=== PATIENT | female | born 1970 | race Caucasian/White ===

== ENCOUNTER 2017-05-23 12:12 | Emergency (ER) | payer OTHER ==
[~2017-05-23] VITALS: Ht 170.2 cm; Wt 67.1 kg
[~2017-05-23 12:12] MED LIST: ACETAMINOPHEN500 MG PO; AMOCLA500 PO; Augmentin 875-1 EACH PO; CLIN300 PO; Cleocin HCl150 MG PO; DOXY100 PO; FLUC150A PO; Flomax0.4 MG PO; HYDACE5; HYDACE5 PO; HYDR1TAB94 PO; IBUP800 PO; META800 PO; METR250; METR500 PO; MULVITMINE; Miralax17 GM PO; NAPR500 PO; NYST100TC TOP; Norco 5-325 Ta1 EACH PO; OXYACE10; OXYACE5T PO; OXYB5 PO; PERCOCET PO; PRAZ1 PO; Percocet 5-3251 EACH PO; RXHYD5325 PO; RXOXYACE PO; Ultram50 MG PO; Zofran Odt4 MG PO; Zofran Odt4 MG SL; Zofran Odt8 MG SL
== END 2017-05-23 13:33 | disposition home or self-care (01) ==
LOC: ER 12:12
DX: M25.511 Pain in right shoulder (principal); Z88.2 Allergy status to sulfonamides; Z88.1 Allergy status to other antibiotic agents; Z88.5 Allergy status to narcotic agent; F43.10 Post-traumatic stress disorder, unspecified; Z87.891 Personal history of nicotine dependence
CPT/HCPCS: 73030; 99283

== ENCOUNTER 2017-05-28 14:05 | Emergency (ER) | payer OTHER ==
[~2017-05-28] VITALS: Ht 170.2 cm; Wt 67.1 kg
[2017-05-28 14:48] LABS: BASOPHILS ABSOLUTE AUTO 0.06 K/mm3 (0.00-0.23); BASOPHILS PERCENT AUTO 1 % (0-2); EOSINOPHILS ABSOLUTE AUTO 0.04 K/mm3 (0.00-0.68); EOSINOPHILS PERCENT AUTO 1 % (0-6); Hematocrit 37.8 % (33.0-51.0); Hemoglobin 12.4 g/dL (11.5-16.0); IMMATURE GRAN ABSOLUTE AUTO 0.04 K/mm3 (0.00-0.10); IMMATURE GRAN PERCENT AUTO 1 % (0-1); LYMPHOCYTES ABSOLUTE AUTO 1.93 K/mm3 (0.84-5.20); LYMPHOCYTES PERCENT AUTO 25 % (21-46); MONOCYTES ABSOLUTE AUTO 0.53 K/mm3 (0.16-1.47); MONOCYTES PERCENT AUTO 7 % (4-13); Mean Corpuscular HGB 29.7 pg (26.0-34.0); Mean Corpuscular HGB Conc 32.8 g/dL (31.5-36.5); Mean Corpuscular Volume 90 fL (80-100); Mean Platelet Volume 10.2 fL (9.1-12.4); NEUTROPHILS ABSOLUTE AUTO 5.19 K/mm3 (1.96-9.15); NEUTROPHILS PERCENT AUTO 67 % (41-73); Platelet Count 418 K/mm3 (150-400); RDW Coefficient Variation 15.5 % (11.7-14.2); RDW Standard Deviation 51.4 fL (35.1-46.3); Red Blood Cell Count 4.18 M/mm3 (3.80-5.20); White Blood Cell Count 7.79 K/mm3 (4.00-11.30)
[2017-05-28 15:10] LABS: Alanine Aminotransfer (ALT/SGP 16 U/L (12-78); Albumin/Globulin Ratio 1.1 (0.8-1.8); Alk Phos 55 U/L (50-136); Anion Gap 7 mmol/L (6-16); Aspartate Aminotrans (AST/SGOT 10 U/L (12-37); Bilirubin, Total 0.2 mg/dL (0.1-1.0); Blood Urea Nitrogen 6 mg/dL (8-24); Bun/Creatinine Ratio 10.7 (12.0-20.0); CO2, Blood 27 mmol/L (21-32); Chloride, Blood 108 mmol/L (98-108); Creatinine, Blood 0.56 mg/dL (0.40-1.00); Globulin, Blood 3.7 g/dL (2.2-4.0); Glomerular Filtration Rate >60 (60-); Glucose, Blood 111 mg/dL (70-99); Potassium, Blood 3.7 mmol/L (3.5-5.5); Sodium, Blood 142 mmol/L (136-145); Total Protein, Blood 7.7 g/dL (6.4-8.2)
[2017-05-28 17:10] LABS: Source, Urine Voided
[2017-05-28 17:19] LABS: Appearance, Urine Clear (Clear); Bilirubin, Urine Neg (Neg); Blood, Urine Neg (Neg); Color, Urine Yellow (P-Yellow); Glucose Qualitative, Urine Neg (Neg); Ketones, Urine 2+ (Neg); Leukocyte Esterase, Urine Neg (Neg); Nitrite, Urine Neg (Neg); Protein, Urine Neg (Neg); Specific Gravity, Urine 1.015 (1.003-1.022); Urobilinogen, Urine NORM (Normal)
[2017-05-28 17:44] LABS: Magnesium, Blood 2.1 mg/dL (1.6-2.4)
== END 2017-05-28 22:08 | disposition home or self-care (01) ==
LOC: ER 14:05
PROVIDERS: Emergency Medicine
DX: N83.201 Unspecified ovarian cyst, right side (principal); R42 Dizziness and giddiness; R53.83 Other fatigue; D64.9 Anemia, unspecified; N20.0 Calculus of kidney; Z88.2 Allergy status to sulfonamides; Z88.1 Allergy status to other antibiotic agents; Z88.5 Allergy status to narcotic agent; Z88.8 Allergy status to other drugs, medicaments and biological substances; Z87.891 Personal history of nicotine dependence
CPT/HCPCS: 36415; 74176; 76830; 76856; 80053; 81003; 81025; 83540; 83690; 83735; 84443; 85025; 93005; 93010; J1885; J3010

== ENCOUNTER → 2017-06-06 | Outpatient (CLI) | payer OTHER ==
[2017-06-07 08:14] LABS: Candida species (DNA Probe) Positive (NEGATIVE); G. vaginalis (DNA Probe) Positive (NEGATIVE); T. vaginalis (DNA Probe) Negative (NEGATIVE)
== END ==
LOC: LAB 18:17 → LAB SHORT 18:17
PROVIDERS: Nurse Practitioner Family
DX: N89.8 Other specified noninflammatory disorders of vagina (principal)
CPT/HCPCS: 87480; 87510; 87660

== ENCOUNTER 2017-06-14 16:06 | Emergency (ER) | payer OTHER ==
[~2017-06-14] VITALS: Ht 162.6 cm; Wt 65.8 kg
[2017-06-15] MEDS ORDERED: OXYC1TAB11 (17:41)
== END 2017-06-14 17:41 | disposition home or self-care (01) ==
LOC: ER 16:06
DX: R00.2 Palpitations (principal)
CPT/HCPCS: 93005; 93010; 99283

== ENCOUNTER 2017-06-15 17:22 | Emergency (ER) | payer OTHER ==
[~2017-06-15] VITALS: Ht 170.2 cm; Wt 65.8 kg
[2017-06-15] MEDS ORDERED: OXYC1TAB11 (17:41)
[2017-06-15 18:06] LABS: BASOPHILS ABSOLUTE AUTO 0.02 K/mm3 (0.00-0.23); BASOPHILS PERCENT AUTO 0 % (0-2); EOSINOPHILS PERCENT AUTO 0 % (0-6); Hematocrit 38.6 % (33.0-51.0); Hemoglobin 12.9 g/dL (11.5-16.0); IMMATURE GRAN ABSOLUTE AUTO 0.08 K/mm3 (0.00-0.10); IMMATURE GRAN PERCENT AUTO 1 % (0-1); LYMPHOCYTES ABSOLUTE AUTO 1.37 K/mm3 (0.84-5.20); LYMPHOCYTES PERCENT AUTO 9 % (21-46); MONOCYTES ABSOLUTE AUTO 0.86 K/mm3 (0.16-1.47); MONOCYTES PERCENT AUTO 6 % (4-13); Mean Corpuscular HGB 29.6 pg (26.0-34.0); Mean Corpuscular HGB Conc 33.4 g/dL (31.5-36.5); Mean Corpuscular Volume 89 fL (80-100); Mean Platelet Volume 10.2 fL (9.1-12.4); NEUTROPHILS ABSOLUTE AUTO 12.35 K/mm3 (1.96-9.15); NEUTROPHILS PERCENT AUTO 84 % (41-73); Platelet Count 381 K/mm3 (150-400); RDW Coefficient Variation 14.6 % (11.7-14.2); RDW Standard Deviation 47.8 fL (35.1-46.3); Red Blood Cell Count 4.36 M/mm3 (3.80-5.20); White Blood Cell Count 14.68 K/mm3 (4.00-11.30)
[2017-06-15 18:27] LABS: Alanine Aminotransfer (ALT/SGP 14 U/L (12-78); Albumin, Blood 3.9 g/dL (3.4-5.0); Albumin/Globulin Ratio 1.1 (0.8-1.8); Alk Phos 49 U/L (50-136); Anion Gap 10 mmol/L (6-16); Aspartate Aminotrans (AST/SGOT 11 U/L (12-37); Bilirubin, Total 0.3 mg/dL (0.1-1.0); Blood Urea Nitrogen 5 mg/dL (8-24); Bun/Creatinine Ratio 9.7 (12.0-20.0); CO2, Blood 23 mmol/L (21-32); Chloride, Blood 107 mmol/L (98-108); Creatinine, Blood 0.52 mg/dL (0.40-1.00); Globulin, Blood 3.6 g/dL (2.2-4.0); Glomerular Filtration Rate >60 (60-); Glucose, Blood 124 mg/dL (70-99); Potassium, Blood 3.2 mmol/L (3.5-5.5); Sodium, Blood 140 mmol/L (136-145); Total Protein, Blood 7.5 g/dL (6.4-8.2); Troponin I <0.015 ng/mL (0.000-0.040)
== END 2017-06-15 19:16 | disposition home or self-care (01) ==
LOC: ER 17:22
PROVIDERS: Emergency Medicine
DX: R00.2 Palpitations (principal)
CPT/HCPCS: 36415; 80053; 83605; 84484; 85025; 85651; 87040; 93005; 93010; 99283

== ENCOUNTER 2017-08-16 13:58 | Emergency (ER) | payer OTHER ==
[~2017-08-16] VITALS: Ht 167.6 cm; Wt 65.8 kg
[~2017-08-16 13:58] MED LIST changes: +OXYC1TAB11
[2017-08-16 15:34] LABS: Source, Urine Clean Catch
[2017-08-16 15:35] LABS: Calcium, Ionized (POC) 1.17 mmol/L (1.10-1.46); Chloride (POC) 102 mmol/L (98-108); Creatinine (POC) 0.5 mg/dL (0.6-1.0); Glucose (ISTAT POC) 86 mg/dL (70-99); Hemoglobin (POC) 13.9 g/dL (12.0-16.0); Potassium (POC) 3.6 mmol/L (3.5-5.5); Sodium (POC) 140 mmol/L (135-148); Total CO2 (POC) 27 mmol/L (21-32)
[2017-08-16 15:42] LABS: Bilirubin, Urine Neg (Neg); Blood, Urine 3+ (Neg); Glucose Qualitative, Urine Neg (Neg); Ketones, Urine Neg (Neg); Leukocyte Esterase, Urine 3+ (Neg); Nitrite, Urine Neg (Neg); Protein, Urine Neg (Neg); Urobilinogen, Urine NORM (Normal)
[2017-08-16 16:10] LABS: Appearance, Urine Clear (Clear); Color, Urine Yellow (P-Yellow)
[2017-08-16 16:11] LABS: Bacteria Few /hpf; Squamous Epithelial Cells Few /hpf (Few)
[2017-08-16] MEDS ORDERED: CEPH500 PO (16:21)
[2017-08-16] MEDS ORDERED: Pyridium100 MG PO (16:21)
[2017-08-16] MEDS ORDERED: FLUC150A PO (16:21)
[2017-08-16] MEDS ORDERED: Percocet 5-3251 EACH PO (16:23)
[2017-08-16] MEDS ORDERED: Flagyl500 MG PO (16:23)
== END 2017-08-16 16:24 | disposition home or self-care (01) ==
LOC: ER 13:58
PROVIDERS: Physician Assistant
DX: N39.0 Urinary tract infection, site not specified (principal); N83.01 Follicular cyst of right ovary; Z88.6 Allergy status to analgesic agent; Z88.2 Allergy status to sulfonamides; Z88.1 Allergy status to other antibiotic agents; Z88.8 Allergy status to other drugs, medicaments and biological substances; Z88.5 Allergy status to narcotic agent; Z87.891 Personal history of nicotine dependence
CPT/HCPCS: 76856; 80047; 81001; 85014; 87077; 87086; 87186; 99284-25

== ENCOUNTER 2017-10-02 16:07 | Emergency (ER) | payer OTHER ==
[~2017-10-02] VITALS: Ht 167.6 cm; Wt 65.8 kg
[~2017-10-02 16:07] MED LIST changes: +CEPH500 PO; +Flagyl500 MG PO; +Pyridium100 MG PO
[2017-10-02] MEDS ORDERED: ALBU90OI INH (16:39)
== END 2017-10-02 16:47 | disposition home or self-care (01) ==
LOC: ER 16:07
DX: R06.02 Shortness of breath (principal); Z88.6 Allergy status to analgesic agent; Z88.2 Allergy status to sulfonamides; Z88.1 Allergy status to other antibiotic agents; Z88.5 Allergy status to narcotic agent; Z88.8 Allergy status to other drugs, medicaments and biological substances; Z87.891 Personal history of nicotine dependence
CPT/HCPCS: 99283

== ENCOUNTER 2017-10-14 15:18 | Emergency (ER) | payer OTHER ==
[~2017-10-14] VITALS: Ht 167.6 cm; Wt 65.8 kg
[~2017-10-14 15:18] MED LIST changes: +ALBU90OI INH
[2017-10-14] MEDS ORDERED: Amoxicillin500 MG PO (16:30)
== END 2017-10-14 16:38 | disposition home or self-care (01) ==
LOC: ER 15:18
DX: J32.8 Other chronic sinusitis (principal); Q89.01 Asplenia (congenital); Z88.2 Allergy status to sulfonamides; Z88.8 Allergy status to other drugs, medicaments and biological substances; Z88.1 Allergy status to other antibiotic agents; Z88.5 Allergy status to narcotic agent; F43.10 Post-traumatic stress disorder, unspecified; Z87.891 Personal history of nicotine dependence
CPT/HCPCS: 71046; 99283-25

== ENCOUNTER 2017-10-16 10:48 | Emergency (ER) | payer OTHER ==
[~2017-10-16] VITALS: Ht 167.6 cm; Wt 65.8 kg
[~2017-10-16 10:48] MED LIST changes: +Amoxicillin500 MG PO
[2017-10-16 12:29] LABS: Source, Urine Clean Catch
[2017-10-16 12:35] LABS: BASOPHILS ABSOLUTE AUTO 0.06 K/mm3 (0.00-0.23); BASOPHILS PERCENT AUTO 1 % (0-2); EOSINOPHILS ABSOLUTE AUTO 0.02 K/mm3 (0.00-0.68); EOSINOPHILS PERCENT AUTO 0 % (0-6); Hematocrit 37.2 % (33.0-51.0); Hemoglobin 12.1 g/dL (11.5-16.0); IMMATURE GRAN ABSOLUTE AUTO 0.07 K/mm3 (0.00-0.10); IMMATURE GRAN PERCENT AUTO 1 % (0-1); LYMPHOCYTES PERCENT AUTO 30 % (21-46); MONOCYTES ABSOLUTE AUTO 0.85 K/mm3 (0.16-1.47); MONOCYTES PERCENT AUTO 9 % (4-13); Mean Corpuscular HGB 29.4 pg (26.0-34.0); Mean Corpuscular HGB Conc 32.5 g/dL (31.5-36.5); Mean Corpuscular Volume 91 fL (80-100); Mean Platelet Volume 10.5 fL (9.1-12.4); NEUTROPHILS ABSOLUTE AUTO 5.44 K/mm3 (1.96-9.15); NEUTROPHILS PERCENT AUTO 60 % (41-73); Platelet Count 357 K/mm3 (150-400); RDW Coefficient Variation 13.9 % (11.7-14.2); RDW Standard Deviation 46.4 fL (35.1-46.3); Red Blood Cell Count 4.11 M/mm3 (3.80-5.20); White Blood Cell Count 9.14 K/mm3 (4.00-11.30)
[2017-10-16 12:37] LABS: Bilirubin, Urine Neg (Neg); Blood, Urine 2+ (Neg); Glucose Qualitative, Urine Neg (Neg); Ketones, Urine 2+ (Neg); Leukocyte Esterase, Urine Neg (Neg); Nitrite, Urine Neg (Neg); Protein, Urine Neg (Neg); Specific Gravity, Urine 1.025 (1.003-1.022); Urobilinogen, Urine NORM (Normal)
[2017-10-16 12:53] LABS: Alanine Aminotransfer (ALT/SGP 14 U/L (12-78); Albumin, Blood 3.5 g/dL (3.4-5.0); Albumin/Globulin Ratio 0.9 (0.8-1.8); Alk Phos 49 U/L (50-136); Anion Gap 6 mmol/L (6-16); Aspartate Aminotrans (AST/SGOT 15 U/L (12-37); Bilirubin, Total 0.2 mg/dL (0.1-1.0); Blood Urea Nitrogen 5 mg/dL (8-24); Bun/Creatinine Ratio 9.1 (12.0-20.0); CO2, Blood 25 mmol/L (21-32); Calcium, Blood 8.6 mg/dL (8.5-10.1); Chloride, Blood 109 mmol/L (98-108); Creatinine, Blood 0.55 mg/dL (0.40-1.00); Globulin, Blood 3.8 g/dL (2.2-4.0); Glomerular Filtration Rate >60 (60-); Glucose, Blood 80 mg/dL (70-99); Potassium, Blood 3.5 mmol/L (3.5-5.5); Sodium, Blood 140 mmol/L (136-145); Total Protein, Blood 7.3 g/dL (6.4-8.2)
[2017-10-16 13:16] LABS: Appearance, Urine Hazy (Clear); Bacteria Rare /hpf; Color, Urine Yellow (P-Yellow); Red Blood Cells, Urine 0-2 /hpf (0-2); Squamous Epithelial Cells Many /hpf (Few); White Blood Cells, Urine 0-2 /hpf (0-5)
[2017-10-16 13:17] LABS: Mucus Mod (0-Heavy)
== END 2017-10-16 14:53 | disposition home or self-care (01) ==
LOC: ER 10:48
PROVIDERS: Emergency Medicine; Physician Assistant
DX: J32.9 Chronic sinusitis, unspecified (principal); R10.31 Right lower quadrant pain; Z88.6 Allergy status to analgesic agent; Z88.2 Allergy status to sulfonamides; Z88.1 Allergy status to other antibiotic agents; Z88.5 Allergy status to narcotic agent; Z88.8 Allergy status to other drugs, medicaments and biological substances; Z87.891 Personal history of nicotine dependence
CPT/HCPCS: 36415; 76856; 76857; 80053; 81001; 83605; 85025; 96361; 96374; 99284-25; J2405; J7120

== ENCOUNTER 2017-10-16 19:19 | Emergency (ER) | payer OTHER ==
[~2017-10-16] VITALS: Ht 167.6 cm; Wt 65.8 kg
== END 2017-10-16 23:49 | disposition home or self-care (01) ==
LOC: ER 19:19
DX: R10.9 Unspecified abdominal pain (principal); Z88.6 Allergy status to analgesic agent; Z88.2 Allergy status to sulfonamides; Z88.1 Allergy status to other antibiotic agents; Z88.8 Allergy status to other drugs, medicaments and biological substances; Z88.5 Allergy status to narcotic agent; Z87.891 Personal history of nicotine dependence
CPT/HCPCS: 99283

== ENCOUNTER 2017-10-24 12:52 | Emergency (ER) | payer OTHER ==
[~2017-10-24] VITALS: Ht 167.6 cm; Wt 65.8 kg
[2017-10-24] MEDS ORDERED: Percocet 5-3251 EACH PO (14:44)
== END 2017-10-24 15:10 | disposition home or self-care (01) ==
LOC: ER 12:52
DX: N83.209 Unspecified ovarian cyst, unspecified side (principal); N83.511 Torsion of right ovary and ovarian pedicle; Z88.6 Allergy status to analgesic agent; Z88.2 Allergy status to sulfonamides; Z88.1 Allergy status to other antibiotic agents; Z88.5 Allergy status to narcotic agent; Z88.8 Allergy status to other drugs, medicaments and biological substances; Z87.891 Personal history of nicotine dependence

== ENCOUNTER 2018-06-08 07:10 | Emergency (ER) | payer OTHER ==
[~2018-06-08] VITALS: Ht 167.6 cm; Wt 63.5 kg
[2018-06-08] MEDS ORDERED: Vibramycin100 MG PO (07:29)
[2018-06-08] MEDS ORDERED: FLUC150A PO (07:29)
[2018-06-08] MEDS ORDERED: Percocet 5-3251 EACH PO (07:29)
[2018-06-08] MEDS ORDERED: METR500 PO (07:30)
[2018-06-09] MEDS ORDERED: ACET325 PO (01:32)
== END 2018-06-08 07:50 | disposition home or self-care (01) ==
LOC: ER 07:10
DX: K04.7 Periapical abscess without sinus (principal); F43.10 Post-traumatic stress disorder, unspecified; Z88.1 Allergy status to other antibiotic agents; Z88.2 Allergy status to sulfonamides; Z88.5 Allergy status to narcotic agent; Z88.6 Allergy status to analgesic agent; Z88.8 Allergy status to other drugs, medicaments and biological substances; Z87.891 Personal history of nicotine dependence

== ENCOUNTER 2019-03-24 01:57 | Emergency (ER) | payer OTHER ==
[~2019-03-24] VITALS: Ht 167.6 cm; Wt 64.4 kg
== END 2019-03-24 03:00 | disposition home or self-care (01) ==
LOC: ER 01:57
DX: J02.9 Acute pharyngitis, unspecified (principal); Z88.8 Allergy status to other drugs, medicaments and biological substances; Z88.0 Allergy status to penicillin; Z88.2 Allergy status to sulfonamides; Z88.1 Allergy status to other antibiotic agents; Z88.5 Allergy status to narcotic agent
CPT/HCPCS: 87081; 87147; 87430; 99283; A9270

== ENCOUNTER → 2019-03-24 | Outpatient (CLI) | payer OTHER ==
[~2019-03-24] MED LIST changes: +ACET325 PO; +Vibramycin100 MG PO
== END ==
LOC: LAB 08:20 → LAB SHORT 08:20
DX: J02.9 Acute pharyngitis, unspecified (principal); R59.9 Enlarged lymph nodes, unspecified
CPT/HCPCS: 87081; 87147

== ENCOUNTER 2020-12-17 17:06 | Inpatient (IN) | payer OTHER ==
[~2020-12-17] VITALS: Ht 167.6 cm; Wt 71.5 kg
[2020-12-17 18:00] LABS: BASOPHILS ABSOLUTE AUTO 0.08 K/mm3 (0.00-0.23); BASOPHILS PERCENT AUTO 1 % (0-2); EOSINOPHILS ABSOLUTE AUTO 0.04 K/mm3 (0.00-0.68); EOSINOPHILS PERCENT AUTO 0 % (0-6); Hematocrit 28.7 % (33.0-51.0); Hemoglobin 8.6 g/dL (11.5-16.0); IMMATURE GRAN ABSOLUTE AUTO 0.07 K/mm3 (0.00-0.10); IMMATURE GRAN PERCENT AUTO 1 % (0-1); LYMPHOCYTES ABSOLUTE AUTO 2.96 K/mm3 (0.84-5.20); LYMPHOCYTES PERCENT AUTO 21 % (21-46); MONOCYTES ABSOLUTE AUTO 1.24 K/mm3 (0.16-1.47); MONOCYTES PERCENT AUTO 9 % (4-13); Mean Corpuscular HGB 20.7 pg (26.0-34.0); Mean Corpuscular Volume 69 fL (80-100); Mean Platelet Volume 10.7 fL (9.1-12.4); NEUTROPHILS ABSOLUTE AUTO 9.43 K/mm3 (1.96-9.15); NEUTROPHILS PERCENT AUTO 68 % (41-73); Platelet Count 333 K/mm3 (150-400); RDW Coefficient Variation 20.4 % (11.7-14.2); RDW Standard Deviation 50.1 fL (35.1-46.3); Red Blood Cell Count 4.15 M/mm3 (3.80-5.20); White Blood Cell Count 13.82 K/mm3 (4.00-11.30)
[2020-12-17 18:20] LABS: Alanine Aminotransfer (ALT/SGP 16 U/L (12-78); Albumin, Blood 3.4 g/dL (3.4-5.0); Albumin/Globulin Ratio 0.8 (0.8-1.8); Alk Phos 71 U/L (50-136); Anion Gap 4 mmol/L (6-16); Aspartate Aminotrans (AST/SGOT 13 U/L (12-37); Bilirubin, Total 0.3 mg/dL (0.1-1.0); Blood Urea Nitrogen 9 mg/dL (8-24); Bun/Creatinine Ratio 15.3 (12.0-20.0); CO2, Blood 26 mmol/L (21-32); Calcium, Blood 8.7 mg/dL (8.5-10.1); Chloride, Blood 105 mmol/L (98-108); Creatinine, Blood 0.59 mg/dL (0.40-1.00); Globulin, Blood 4.5 g/dL (2.2-4.0); Glomerular Filtration Rate >60 (60-); Glucose, Blood 103 mg/dL (70-99); Potassium, Blood 3.5 mmol/L (3.5-5.5); Sodium, Blood 135 mmol/L (136-145); Total Protein, Blood 7.9 g/dL (6.4-8.2); Troponin I <0.015 ng/mL (0.000-0.040)
[2020-12-17 22:21] LABS: International Normalized Ratio 1.09; Prothrombin Time Results 11.4 Sec (9.7-11.5)
[2020-12-17 22:28] LABS: Anti-Xa UFH, PHA Monitoring <0.10 IU/mL
--- NOTE | 2020-12-18 01:10 | NUR ---
ASSUMPTION OF CARE NOTE PATIENT ARRIVED TO PCU APPROX. 2325 VIA HOSPITAL BED. THIS NURSE RECIEVED REPORT FROM MAC RN DOWN IN ED PRIOR TO ARRIVAL. PT WAS ABLE TO TRANSFER TO PCU BED WITHOUT ASSISTANCE. PT WAS ORIENTED TO ROOM AND BELONGINGS WERE PUT IN CUBBORD IN ROOM. PT IS ALERT AND ORIENTED X 4, ON ROOM AIR SP02 IS 100%. PT REPORTED CHEST PAIN 7 TO 8/10. THIS NURSE SPOKE WITH DOCTOR PREETIE AND ORDERS PUT IN FOR PAIN MANAGEMENT. PT WAS MEDICATED PER EMAR AND NOW REPORTS PAIN 2/10. HEPARIN DRIP INFUSING PER EMAR ORDERS IN LEFT AC IV. CALL LIGHT IS WITHIN REACH AND PATIENT IS NOW EATING A SNACK. WILL CONTINUE TO MONITOR.
[2020-12-18 04:28] LABS: BASOPHILS ABSOLUTE AUTO 0.09 K/mm3 (0.00-0.23); BASOPHILS PERCENT AUTO 1 % (0-2); EOSINOPHILS PERCENT AUTO 2 % (0-6); Hemoglobin 7.8 g/dL (11.5-16.0); IMMATURE GRAN ABSOLUTE AUTO 0.07 K/mm3 (0.00-0.10); IMMATURE GRAN PERCENT AUTO 1 % (0-1); LYMPHOCYTES ABSOLUTE AUTO 2.39 K/mm3 (0.84-5.20); LYMPHOCYTES PERCENT AUTO 23 % (21-46); MONOCYTES ABSOLUTE AUTO 1.33 K/mm3 (0.16-1.47); MONOCYTES PERCENT AUTO 13 % (4-13); Mean Corpuscular HGB 20.5 pg (26.0-34.0); Mean Corpuscular HGB Conc 28.9 g/dL (31.5-36.5); Mean Corpuscular Volume 71 fL (80-100); Mean Platelet Volume 11.5 fL (9.1-12.4); NEUTROPHILS ABSOLUTE AUTO 6.53 K/mm3 (1.96-9.15); NEUTROPHILS PERCENT AUTO 62 % (41-73); Platelet Count 301 K/mm3 (150-400); RDW Coefficient Variation 20.9 % (11.7-14.2); RDW Standard Deviation 52.1 fL (35.1-46.3); Red Blood Cell Count 3.81 M/mm3 (3.80-5.20); White Blood Cell Count 10.61 K/mm3 (4.00-11.30)
[2020-12-18 04:45] LABS: Anion Gap 5 mmol/L (6-16); Blood Urea Nitrogen 8 mg/dL (8-24); Bun/Creatinine Ratio 15.2 (12.0-20.0); CO2, Blood 25 mmol/L (21-32); Calcium, Blood 8.4 mg/dL (8.5-10.1); Chloride, Blood 107 mmol/L (98-108); Creatinine, Blood 0.53 mg/dL (0.40-1.00); Glomerular Filtration Rate >60 (60-); Glucose, Blood 95 mg/dL (70-99); Potassium, Blood 3.7 mmol/L (3.5-5.5); Sodium, Blood 137 mmol/L (136-145)
[2020-12-18 04:56] LABS: Anti-Xa UFH, PHA Monitoring 0.62 IU/mL; International Normalized Ratio 1.11; Prothrombin Time Results 11.6 Sec (9.7-11.5)
--- NOTE | 2020-12-18 04:58 | NUR ---
SHIFT SUMMARY PT IS ALERT AND ORIENTED X 4. SPO2 97-100% VIA RA. VITAL SIGNS STABLE. PT HAS REPORTED CHEST PAIN ANYWHERE FROM 6 TO 9/10 AND HAS BEEN MEDICATED PER EMAR. PT REPORTS PAIN IS PRIMARILY IN RIGHT CHEST W/ ONSET UPON INSPIRATION. PT IS SBA TO BEDSIDE COMMODE TO MANAGE LINES. LEFT IV IS INFUSING HEPARIN AT 18 UNITS/KG/HR PER EMAR ORDERS. NO OTHER ACUTE CHNAGES NOTED. CALL LIGHT IS IN REACH.
--- NOTE | 2020-12-18 11:16 | NUR ---
Echocardiogram completed.
--- NOTE | 2020-12-18 17:39 | NUR ---
PT SUMMARY: PT STILL HAS OSME CHEST PAINS DUE TO PE'S MOSTLY ACCOMPANIED WITH DEEP BREATHS, PT STARTED ON OXYCODONE 5MG PT IT WAS MORE EFFECTIVE THAN FENTANYL. HEPARIN GTT RUNNING AT 17U/KG/HR. VITALS HRR SR/ST 90-110'S, BP SYSTOLIC 110'S, SATS ABOVE 95% ON RA, PT HAS MILD FEVER 100.2F TYLENOL GIVEN AND WENT DOWN TO 99.2, DR ALMONTE AWARE FEVER DUE TO PERIDONTAL ABSCESS PT STARTED ON METRONIDAZOLE AND DIFLUCAN PER DENTIST ORDERS. DR RACHEL CONSULTED NO IR ON SHCED FOR TODAY WILL FF-UP IN AM. PT ALERT AND ORIENTED X4 AT BASELINE, CALLS APPROPRIATELY, GETS UP TO USE THE BEDSIDE COMMODE PT STATED SHE GETS MILD SOB SATS REMAINED ABOVE 95% ON RA. NO OTHER ISSUES REPORTED WILL REPORT TO ONCOMING SHIFT
--- NOTE | 2020-12-19 05:13 | NUR ---
PATIENT IS ALERT AND ORIENTATED, FLAT AFFECT, CALL LIGHT WITHIN REACH, CALLS APPROPRIATELY, USES THE BEDSIDE COMMODE. PATIENT WAS UP ALL NIGHT NO SLEEP OVER 30 MINUTES, CALLING EVERY HOUR REQUESTING PAIN MEDICATION. AROUND 0230 PATIENT C/O OF NAUSEA RECEIVED NEW ORDERS FOR ZOFRAN AND ATARAX FOR ANXIETY. PATIENT VITALS STABLE WITH 02 97-99 SATURATIONS ON RA, EXPRESSED DIFFICULTY TO BREATHE AND REQUESTED SHE HAVE NASAL CANNULA WITH 2 LITERS " JUST IN CASE I NEED IT" UPON ENTERING ROOM PATIENT IS RESTING COMFORTABLY IN BED NO PROTECTED MOVEMENTS, LOOKING AT HER PHONE NO GRIMACING NOTED FLACC SCORE O, PATIENT REPORTS 7-11/20 PAIN IN HER CHEST THAT RADIATES TO HER BACK, WITH DIFFICULTY BREATHING, NO ACCERSSORY MUSCLE USES, RR 12-16 AND O2 SATURATIONS MAINTAIN > 92 ON RA. PATIENT ALSO REQUESTED THAT SHE HAVE THRILL PERFORMER SEE HER TODAY, SHE IS IN A VOLITILE SITUATION WITH WHERE SHE LIVES, " THE NEIGHBOR SMOKES CIGGARETTES SO BAD, I HAD TO GIVE MY NOTICE, MY LANDLORD IS NOT GOING TO MIND I BREAK MY LEASE, NOTHING HE CAN DO THE TENANT IS GRANDFATHER CLAUSED IN AND CAN SMOKE. THE YESTERDAY STATED THAT HIS SMOKING COULD OF CONTRIBUTED TO MY BLOOD CLOTS." I WILL FORWARD REQUEST TO DAYSHIFT JADE.
[2020-12-19 06:46] LABS: BASOPHILS ABSOLUTE AUTO 0.09 K/mm3 (0.00-0.23); BASOPHILS PERCENT AUTO 1 % (0-2); EOSINOPHILS ABSOLUTE AUTO 0.08 K/mm3 (0.00-0.68); EOSINOPHILS PERCENT AUTO 1 % (0-6); Hematocrit 25.4 % (33.0-51.0); Hemoglobin 7.3 g/dL (11.5-16.0); IMMATURE GRAN ABSOLUTE AUTO 0.09 K/mm3 (0.00-0.10); IMMATURE GRAN PERCENT AUTO 1 % (0-1); LYMPHOCYTES PERCENT AUTO 9 % (21-46); MONOCYTES ABSOLUTE AUTO 1.46 K/mm3 (0.16-1.47); MONOCYTES PERCENT AUTO 9 % (4-13); Mean Corpuscular HGB 20.3 pg (26.0-34.0); Mean Corpuscular HGB Conc 28.7 g/dL (31.5-36.5); Mean Corpuscular Volume 71 fL (80-100); NEUTROPHILS ABSOLUTE AUTO 12.59 K/mm3 (1.96-9.15); NEUTROPHILS PERCENT AUTO 80 % (41-73); Platelet Count 273 K/mm3 (150-400); RDW Coefficient Variation 20.9 % (11.7-14.2); RDW Standard Deviation 52.2 fL (35.1-46.3); Red Blood Cell Count 3.59 M/mm3 (3.80-5.20); White Blood Cell Count 15.71 K/mm3 (4.00-11.30)
[2020-12-19 06:47] LABS: Mean Platelet Volume 11.6 fL (9.1-12.4)
[2020-12-19 06:53] LABS: Anion Gap 6 mmol/L (6-16); Blood Urea Nitrogen 6 mg/dL (8-24); Bun/Creatinine Ratio 13.2 (12.0-20.0); CO2, Blood 23 mmol/L (21-32); Calcium, Blood 8.1 mg/dL (8.5-10.1); Chloride, Blood 105 mmol/L (98-108); Creatinine, Blood 0.46 mg/dL (0.40-1.00); Glomerular Filtration Rate >60 (60-); Glucose, Blood 134 mg/dL (70-99); Potassium, Blood 3.7 mmol/L (3.5-5.5); Sodium, Blood 134 mmol/L (136-145)
--- NOTE | 2020-12-19 16:52 | NUR ---
PT SUMMARY: PT MOSTLY ANXIOUS TODAY CALLS OFTEN FOR PAIN MEDS, TYLENOL AND ATARAX. OXYCODONE INCREASED TO 10MG. HAD FEVER OF 100 TYLENOL GIVEN TEMP NOW DOWN TO 99. ABO GIVEN PER ORDERS FOR DENTAL ABSCESS. REMAINS ON HEPARIN GTT AT 14U/KG/HR. PT WAS USING THE BEDSIDE COMMODE FOR TOILETING C/O SOB AND CHEST PAIN WITH EXERTION. PT REQUESTED TO USE BED ODELL NEXT TIME. DR RACHEL ALSO WENT AND SAW PT TODAY PLAN TO TO DO THROMBECTOMY TOMORROW IF CHEST PAIN STILL WORSE. NO OTHER ISSUES REPORTED, PT REMAINS IN BED ALL SHIFT, ABLE TO MAKE NEEDS KNOWN, WILL MONITOR
[2020-12-20 00:56] LABS: BASOPHILS ABSOLUTE AUTO 0.07 K/mm3 (0.00-0.23); BASOPHILS PERCENT AUTO 0 % (0-2); EOSINOPHILS ABSOLUTE AUTO 0.02 K/mm3 (0.00-0.68); EOSINOPHILS PERCENT AUTO 0 % (0-6); Hematocrit 24.6 % (33.0-51.0); Hemoglobin 7.4 g/dL (11.5-16.0); IMMATURE GRAN ABSOLUTE AUTO 0.16 K/mm3 (0.00-0.10); IMMATURE GRAN PERCENT AUTO 1 % (0-1); LYMPHOCYTES ABSOLUTE AUTO 2.63 K/mm3 (0.84-5.20); LYMPHOCYTES PERCENT AUTO 13 % (21-46); MONOCYTES PERCENT AUTO 13 % (4-13); Mean Corpuscular HGB Conc 30.1 g/dL (31.5-36.5); Mean Corpuscular Volume 70 fL (80-100); Mean Platelet Volume 11.1 fL (9.1-12.4); NEUTROPHILS ABSOLUTE AUTO 15.33 K/mm3 (1.96-9.15); NEUTROPHILS PERCENT AUTO 73 % (41-73); Platelet Count 337 K/mm3 (150-400); RDW Coefficient Variation 21.2 % (11.7-14.2); Red Blood Cell Count 3.53 M/mm3 (3.80-5.20); White Blood Cell Count 20.91 K/mm3 (4.00-11.30)
[2020-12-20 01:13] LABS: Anion Gap 6 mmol/L (6-16); Blood Urea Nitrogen 6 mg/dL (8-24); Bun/Creatinine Ratio 11.6 (12.0-20.0); CO2, Blood 26 mmol/L (21-32); Calcium, Blood 8.4 mg/dL (8.5-10.1); Chloride, Blood 103 mmol/L (98-108); Creatinine, Blood 0.52 mg/dL (0.40-1.00); Glomerular Filtration Rate >60 (60-); Glucose, Blood 115 mg/dL (70-99); Potassium, Blood 3.6 mmol/L (3.5-5.5); Sodium, Blood 135 mmol/L (136-145)
--- NOTE | 2020-12-20 05:52 | NUR ---
PT ON RA O2 SAT 93%. SOME DYSPNEA WITH EXERTION. MAIN CONCERN THIS SHIFT IS PLEURITIC PAIN, DOMINENTLY ON THE RIGHT LUNG. LUNG SOUND DIMINISHED ACROSS ALL RIGHT LUNG PEGUERO AND CLEAR ON LEFT LUNGS. ADMINISTERING [employer]NALGES[employer] THROUGHOUT SHIFT WELL TYLENOL. HIGHEST TEMP THIS SHIFT 99 F
--- NOTE | 2020-12-20 17:08 | NUR ---
Shift note: Pt is A&O. VSS on RA. Pain in lungs/ pleuritic pain, prn fentyl, oxy and tylenol given. Anxious in am, prn hydroxazine given. Heparin gtt continued 14unit/kg/hr, anti Xa .32 this evening, no changes to rate. Pt has been eating more today and attempting to drink as much water as she can.
--- NOTE | 2020-12-20 17:35 | NUR ---
pt has had low grade fever throughout the day w/ tylenol q6. 99-100.3.
[2020-12-21 03:49] LABS: BASOPHILS ABSOLUTE AUTO 0.06 K/mm3 (0.00-0.23); BASOPHILS PERCENT AUTO 0 % (0-2); EOSINOPHILS ABSOLUTE AUTO 0.03 K/mm3 (0.00-0.68); EOSINOPHILS PERCENT AUTO 0 % (0-6); Hematocrit 24.2 % (33.0-51.0); Hemoglobin 7.1 g/dL (11.5-16.0); IMMATURE GRAN ABSOLUTE AUTO 0.19 K/mm3 (0.00-0.10); IMMATURE GRAN PERCENT AUTO 1 % (0-1); LYMPHOCYTES ABSOLUTE AUTO 2.67 K/mm3 (0.84-5.20); LYMPHOCYTES PERCENT AUTO 13 % (21-46); MONOCYTES PERCENT AUTO 14 % (4-13); Mean Corpuscular HGB 20.6 pg (26.0-34.0); Mean Corpuscular HGB Conc 29.3 g/dL (31.5-36.5); Mean Corpuscular Volume 70 fL (80-100); Mean Platelet Volume 11.6 fL (9.1-12.4); NEUTROPHILS ABSOLUTE AUTO 14.54 K/mm3 (1.96-9.15); NEUTROPHILS PERCENT AUTO 71 % (41-73); Platelet Count 337 K/mm3 (150-400); RDW Coefficient Variation 20.9 % (11.7-14.2); RDW Standard Deviation 52.1 fL (35.1-46.3); Red Blood Cell Count 3.44 M/mm3 (3.80-5.20); White Blood Cell Count 20.39 K/mm3 (4.00-11.30)
[2020-12-21 04:05] LABS: Anion Gap 5 mmol/L (6-16); Blood Urea Nitrogen 5 mg/dL (8-24); Bun/Creatinine Ratio 9.7 (12.0-20.0); CO2, Blood 27 mmol/L (21-32); Calcium, Blood 8.6 mg/dL (8.5-10.1); Chloride, Blood 102 mmol/L (98-108); Creatinine, Blood 0.52 mg/dL (0.40-1.00); Glomerular Filtration Rate >60 (60-); Glucose, Blood 106 mg/dL (70-99); Potassium, Blood 3.8 mmol/L (3.5-5.5); Sodium, Blood 134 mmol/L (136-145)
--- NOTE | 2020-12-21 06:21 | NUR ---
Pt reorting signifigant pain at start of shift. IV found to have infiltrated requiring new iv and bolus of heparin and increased heparin gtt. after heparin bolus patient reports feeling much better. pt reports having most ease transfering to bsc since admit. patient reported this improvement 2x. later this shift pt denies improvement and reports concern about pain medication not having been increased. pt is taking adequet po intake, but reports concern as to why IV fluids have not been started. This rn discussed adequet PO intake of fluids, but pt continues to have concerns about being dehydrated during the day and needing iv fluids at that time. pt has had 800-1600cc fluid over night and urine is now clear yellow. this was reiterated to patient, but patient continues to express concern about previous days hydration and poorly managed oain control. plan to reevaluate plan with day team.
[2020-12-21 10:26] LABS: Hemoglobin 7.6 g/dL (11.5-16.0)
--- NOTE | 2020-12-21 13:49 | NUR ---
Heparin gtt d/c when first dose of xaralto was given per pharmacy orders.
--- NOTE | 2020-12-21 15:54 | NUR ---
SHIFT NOTE: Pt is A&O, anxious at times. VSS on RA, pt has had a low grade fever again today even with prn tylenol. Pleuritic pain reported, prn fentynl, oxy and tylenol given with some effect. Pt reports pain has improved from yesterday. SOB at times. Heparin gtt d/c and xaralto started per orders. Pt up with supervision. PIV in right hand flushing well. Swelling lower left ext.
--- NOTE | 2020-12-21 16:44 | NUR ---
Pt was requesting more pain med, notified. Pt is already getting fentynl q4hr and oxycodone q4hrs, MD said they will not increase the oxycodone at this time, but ok'ed to give current oxy 10mg dose a little early. Pt notified of this. also notified that pt has had low grade fever the last few days even with q6hr tylenol.
[2020-12-22 05:01] LABS: BASOPHILS ABSOLUTE AUTO 0.06 K/mm3 (0.00-0.23); BASOPHILS PERCENT AUTO 0 % (0-2); EOSINOPHILS ABSOLUTE AUTO 0.22 K/mm3 (0.00-0.68); EOSINOPHILS PERCENT AUTO 2 % (0-6); Hematocrit 24.8 % (33.0-51.0); Hemoglobin 7.2 g/dL (11.5-16.0); IMMATURE GRAN ABSOLUTE AUTO 0.17 K/mm3 (0.00-0.10); IMMATURE GRAN PERCENT AUTO 1 % (0-1); LYMPHOCYTES ABSOLUTE AUTO 1.93 K/mm3 (0.84-5.20); LYMPHOCYTES PERCENT AUTO 13 % (21-46); MONOCYTES ABSOLUTE AUTO 2.13 K/mm3 (0.16-1.47); MONOCYTES PERCENT AUTO 14 % (4-13); Mean Corpuscular HGB 20.2 pg (26.0-34.0); Mean Corpuscular Volume 70 fL (80-100); Mean Platelet Volume 12.1 fL (9.1-12.4); NEUTROPHILS ABSOLUTE AUTO 10.34 K/mm3 (1.96-9.15); NEUTROPHILS PERCENT AUTO 70 % (41-73); NRBC ABSOLUTE 0.02 K/mm3 (0.00-0.02); NRBC Auto 0.1 /100 WBC (0.0-0.2); Platelet Count 413 K/mm3 (150-400); RDW Coefficient Variation 20.7 % (11.7-14.2); RDW Standard Deviation 50.7 fL (35.1-46.3); Red Blood Cell Count 3.56 M/mm3 (3.80-5.20); White Blood Cell Count 14.85 K/mm3 (4.00-11.30)
--- NOTE | 2020-12-22 07:15 | NUR ---
ASSUMPTION OF CARE PT HIT CALL LIGHT FOR PAIN MEDICATION. PT IS A&O X4. PT PLEASANT AND ASKS QUESTIONS. OCCASIONALLY ANXIOUS BUT SUBSIDES WITH CONTINUED CONVERSATION. PT EXPRESSES CONCERN ABOUT GOING HOME DUE TO STAIRS IN THE HOME. PROVIDER INFORMED AND PHYSICAL THERAPY CONSULTED. PT ON RA, LAYING IN BED. BEDSIDE COMMODE PLACED NEXT TO BED, PT INDEPENDENTLY GETS SELF OUT OF BED AND TO COMMODE. REQUESTS TO BE GIVEN PRIVACY AND CALLS WITH CALLIGHT WHEN DONE. PT INDEPENDENTLY GETS SELF BACK INTO BED AND REPOSITIONS HERSELF. VSS. SEE SHIFT ASSESSMENT.
--- NOTE | 2020-12-22 08:54 | NUR ---
PROVIDER IN TO SEE PT. PT. REPORTS SHE IS TOO WEAK TO GO HOME, PLANS FOR PT/OT EVAL FOR POSSIBLE DC TO SNF. CASE MANAGEMENT NOTIFIED OF PLANS, AND AWAITING PT EVAL. PT. ALSO REQUESTING ASSISTANCE WITH HOUSING, CASE MANAGEMENT NOTIFIED. ORDERS PLACED TO DC FENTANYL ADMIN, AND TRANSFER TO MEDICAL FLOOR.
--- NOTE | 2020-12-22 09:47 | NUR ---
PT SEEN BY PHYSICAL THERAPY, CARE MANAGEMENT, AND ATTENDING PHYSICIANS. PT CONTINUES TO EXPRESS CONCERN ABOUT DISCHARGING HOME. TEAM RESEARCHING POSSIBILITY OF PT GOING TO SNF.
[2020-12-22] MEDS ORDERED: Acetaminophen650 M1 PO (13:35)
[2020-12-22] MEDS ORDERED: METR500 PO (13:40)
[2020-12-22] MEDS ORDERED: ROXICODONE5 MG PO (13:42)
[2020-12-22] MEDS ORDERED: MIRALAX17 GM PO (13:43)
[2020-12-22] MEDS ORDERED: XARELTO15 MG PO (13:45)
[2020-12-22] MEDS ORDERED: XARELTO20 MG PO (13:46)
--- NOTE | 2020-12-22 17:10 | NUR ---
DISCHARGE SUMMARY PT DRESSES SELF WITHOUT DIFFICULTY, APPLIED MAKEUP. PT GIVEN WATER AND BELONGINGS GATHERED. IVS REMOVED AND VSS. PT DENIES ADDITIONAL QUESTIONS OR CONCERNS, WHEELED OUT TO [facility] BY DERRICK MAN. DISCHARGE INSTRUCTIONS IN HAND WITH RX. NO ACUTE DISTRESS NOTED UPON DISCHARGE, ENCOURAGED TO RETURN FOR WORSENING SYMPTOMS. HOME HEALTH AND A TO FOLLOW UP IN AM.
[2021-01-01 19:10] LABS: ACT. PRT C RESIST W/FV DEFIC. 2.6 ratio (.); APTT 24.4 sec (.); DRVVT SCREEN SECONDS 33.8 sec (.); FACTOR VIII ACTIVITY 193 % (.); HEXAGONAL PHOSPHOLIPID NEUTRAL 0 sec (.); HOMOCYSTEINE 6.6 umol/L (.); PRT C ACTIVITY (CHROMOGENIC) 71 % (.)
== END 2020-12-22 17:28 | disposition home health service (06) | DRG 176 ==
LOC: ER 17:06 → PCU 21:53 → ER 23:20 → PCU 23:35
PROVIDERS: Emergency Medicine; Family Medicine; Physician Assistant; ADMIT Family Medicine
DX: I26.99 Other pulmonary embolism without acute cor pulmonale (principal); E87.1 Hypo-osmolality and hyponatremia; I82.432 Acute embolism and thrombosis of left popliteal vein; I82.442 Acute embolism and thrombosis of left tibial vein; D64.9 Anemia, unspecified; Z86.718 Personal history of other venous thrombosis and embolism; Z88.1 Allergy status to other antibiotic agents; D72.829 Elevated white blood cell count, unspecified; Z88.2 Allergy status to sulfonamides; Z88.5 Allergy status to narcotic agent; Z23 Encounter for immunization; Z91.030 Bee allergy status; Z88.0 Allergy status to penicillin; Z88.6 Allergy status to analgesic agent; Z98.890 Other specified postprocedural states; Z90.49 Acquired absence of other specified parts of digestive tract; Z98.51 Tubal ligation status; Z88.8 Allergy status to other drugs, medicaments and biological substances
CPT/HCPCS: 36415; 71046; 71260; 80048; 80053; 81240; 83090; 83880; 84484; 85014; 85018; 85025; 85240; 85300; 85303; 85306; 85307; 85520; 85610; 85613; 85730; 85732; 86146; 86147; 93005; 93010; 93306; 93971; 94760; 96374; 96375; 97165; 97530; 99285-25; A9270; J1644; J2405; J3010; Q9967

== ENCOUNTER 2020-12-27 16:50 | Inpatient (IN) | payer OTHER ==
[~2020-12-27] VITALS: Ht 167.6 cm; Wt 68.5 kg
[~2020-12-27 16:50] MED LIST changes: +Acetaminophen650 M1 PO; +MIRALAX17 GM PO; +ROXICODONE5 MG PO; +XARELTO15 MG PO; +XARELTO20 MG PO
[2020-12-27 17:16] LABS: BASOPHILS ABSOLUTE AUTO 0.06 K/mm3 (0.00-0.23); BASOPHILS PERCENT AUTO 0 % (0-2); EOSINOPHILS ABSOLUTE AUTO 0.02 K/mm3 (0.00-0.68); EOSINOPHILS PERCENT AUTO 0 % (0-6); Hematocrit 28.4 % (33.0-51.0); Hemoglobin 8.5 g/dL (11.5-16.0); IMMATURE GRAN ABSOLUTE AUTO 0.91 K/mm3 (0.00-0.10); IMMATURE GRAN PERCENT AUTO 5 % (0-1); LYMPHOCYTES ABSOLUTE AUTO 1.81 K/mm3 (0.84-5.20); LYMPHOCYTES PERCENT AUTO 9 % (21-46); MONOCYTES ABSOLUTE AUTO 0.89 K/mm3 (0.16-1.47); MONOCYTES PERCENT AUTO 4 % (4-13); Mean Corpuscular HGB 20.9 pg (26.0-34.0); Mean Corpuscular HGB Conc 29.9 g/dL (31.5-36.5); Mean Corpuscular Volume 70 fL (80-100); Mean Platelet Volume 10.7 fL (9.1-12.4); NEUTROPHILS ABSOLUTE AUTO 16.54 K/mm3 (1.96-9.15); NEUTROPHILS PERCENT AUTO 82 % (41-73); NRBC ABSOLUTE 0.03 K/mm3 (0.00-0.02); NRBC Auto 0.1 /100 WBC (0.0-0.2); Platelet Count 666 K/mm3 (150-400); RDW Coefficient Variation 22.1 % (11.7-14.2); RDW Standard Deviation 54.1 fL (35.1-46.3); Red Blood Cell Count 4.06 M/mm3 (3.80-5.20); White Blood Cell Count 20.23 K/mm3 (4.00-11.30)
[2020-12-27 17:40] LABS: Alanine Aminotransfer (ALT/SGP 41 U/L (12-78); Albumin, Blood 2.6 g/dL (3.4-5.0); Albumin/Globulin Ratio 0.5 (0.8-1.8); Alk Phos 177 U/L (50-136); Anion Gap 10 mmol/L (6-16); Aspartate Aminotrans (AST/SGOT 109 U/L (12-37); Bilirubin, Total 0.4 mg/dL (0.1-1.0); Blood Urea Nitrogen 6 mg/dL (8-24); Bun/Creatinine Ratio 10.9 (12.0-20.0); CO2, Blood 20 mmol/L (21-32); Calcium, Blood 8.7 mg/dL (8.5-10.1); Chloride, Blood 106 mmol/L (98-108); Creatinine, Blood 0.55 mg/dL (0.40-1.00); Globulin, Blood 4.9 g/dL (2.2-4.0); Glomerular Filtration Rate >60 (60-); Glucose, Blood 239 mg/dL (70-99); Sodium, Blood 136 mmol/L (136-145); Total Protein, Blood 7.5 g/dL (6.4-8.2); Troponin I 0.355 ng/mL (0.000-0.040)
[2020-12-27] MEDS ORDERED: Colace100 MG PO (20:05)
[2020-12-27] MEDS ORDERED: HYDHCL25 PO (20:06)
[2020-12-27 20:07] LABS: International Normalized Ratio 1.12; Prothrombin Time Results 11.7 Sec (9.7-11.5)
[2020-12-27] MEDS ORDERED: ONDA4ODT MM (20:07)
[2020-12-27 23:04] LABS: Hematocrit 24.7 % (33.0-51.0); Hemoglobin 7.3 g/dL (11.5-16.0)
--- NOTE | 2020-12-28 | NUR ---
PATIENT REPORT RECEIVED FROM FISHER TRAWL NET PATIENT AAOX4 NSR IN THE MONITOR NC 4 L PAIN 09/20 0000 MD SABILLON CALLED AND AMDE AWARE ORDERED HEPARIN DRIP, 2 UNITS OF BLOOD 0001 MD CERVANTES CALLED. [facility]
--- NOTE | 2020-12-28 00:30 | NUR ---
PATIENT DID NOT SIGN BLOOD ADMINISTRATION CONSENT, PATIENT WANT TO WAIT UNTILL MORNING LABS ARE READY. MD KUMAR MADE AWARE
[2020-12-28 03:54] LABS: BASOPHILS ABSOLUTE AUTO 0.03 K/mm3 (0.00-0.23); BASOPHILS PERCENT AUTO 0 % (0-2); EOSINOPHILS ABSOLUTE AUTO 0.01 K/mm3 (0.00-0.68); EOSINOPHILS PERCENT AUTO 0 % (0-6); Hematocrit 21.8 % (33.0-51.0); Hemoglobin 6.5 g/dL (11.5-16.0); IMMATURE GRAN ABSOLUTE AUTO 0.82 K/mm3 (0.00-0.10); IMMATURE GRAN PERCENT AUTO 4 % (0-1); LYMPHOCYTES ABSOLUTE AUTO 2.46 K/mm3 (0.84-5.20); LYMPHOCYTES PERCENT AUTO 13 % (21-46); MONOCYTES ABSOLUTE AUTO 1.26 K/mm3 (0.16-1.47); MONOCYTES PERCENT AUTO 7 % (4-13); Mean Corpuscular HGB 20.4 pg (26.0-34.0); Mean Corpuscular HGB Conc 29.8 g/dL (31.5-36.5); Mean Corpuscular Volume 69 fL (80-100); Mean Platelet Volume 10.7 fL (9.1-12.4); NEUTROPHILS ABSOLUTE AUTO 13.86 K/mm3 (1.96-9.15); NEUTROPHILS PERCENT AUTO 75 % (41-73); NRBC ABSOLUTE 0.03 K/mm3 (0.00-0.02); NRBC Auto 0.2 /100 WBC (0.0-0.2); Platelet Count 556 K/mm3 (150-400); RDW Coefficient Variation 21.3 % (11.7-14.2); RDW Standard Deviation 51.1 fL (35.1-46.3); Red Blood Cell Count 3.18 M/mm3 (3.80-5.20); White Blood Cell Count 18.44 K/mm3 (4.00-11.30)
[2020-12-28 04:20] LABS: Alanine Aminotransfer (ALT/SGP 49 U/L (12-78); Albumin, Blood 2.2 g/dL (3.4-5.0); Albumin/Globulin Ratio 0.5 (0.8-1.8); Alk Phos 204 U/L (50-136); Anion Gap 7 mmol/L (6-16); Aspartate Aminotrans (AST/SGOT 83 U/L (12-37); Bilirubin, Total 0.2 mg/dL (0.1-1.0); Blood Urea Nitrogen 7 mg/dL (8-24); Bun/Creatinine Ratio 16.4 (12.0-20.0); CO2, Blood 22 mmol/L (21-32); Calcium, Blood 8.1 mg/dL (8.5-10.1); Chloride, Blood 107 mmol/L (98-108); Creatinine, Blood 0.43 mg/dL (0.40-1.00); Globulin, Blood 4.1 g/dL (2.2-4.0); Glomerular Filtration Rate >60 (60-); Glucose, Blood 127 mg/dL (70-99); Potassium, Blood 4.1 mmol/L (3.5-5.5); Sodium, Blood 136 mmol/L (136-145); Total Protein, Blood 6.3 g/dL (6.4-8.2)
--- NOTE | 2020-12-28 04:20 | NUR ---
PATIENT HEMOGLOBINE 6.5, PATIENT REFUSE THE BLOOD. MD CERVANTES MADE AWARE
--- NOTE | 2020-12-28 09:33 | NUR ---
Care Assumed 0700 Heparin 18 u/kg/hr infusing via right hand IV. A/O X 4, able to follow direction, year/date, and able to state event. Right femoral groin site, soft, nontender, no hematoma. Pt states she stopped taking home blood thinner and switched to tumeric instead due to "having allergy." Dr. Lance at bedside and pt educated on importance of calling provider before stopping medications. Also, patient refusing blood. Dr. Lance and Dr. Rueda educated patient on importance of blood product. Pt states, "I do not want blood unless it can be confirmed that person has not recieved COVID vaccine." Provider educated pt on her recieving RBC and not antibodies. Pt states she would still like to wait until Dr. Foy tells her. Dr. Rueda states she will have resident call Dr. Foy to make him aware of situation. VL Lower Venous Duplex completed this morning and tech states new DVT in left and right extrem, Dr. Ruiz at bedside and made aware. Pain 8/10 on right side of chest/shoulder, treated per emar. NC 1 L to keep SPO2 > 90%. NSR. BP stable.
--- NOTE | 2020-12-28 14:30 | NUR ---
Provider Call Spoke to Dr. Ruiz in regards to patients pain, provider to put in new order. Pt states having right sided shoulder/chest pain, worse with deep breath. Treated per emar with little success. Pt also states feeling SOB. Appears anxious. This occured after pt was educated on importance of taking blood thinner at home and never stopping medication without disucssing with doctor. Pt appears anxious but denies being anxious. HR 90's. BP stable.
--- NOTE | 2020-12-28 16:30 | NUR ---
Provider Visit - Dr. Foy Provider in to see patient and educated on importance of recieving RBC. Along with importance of taking medications after discharge. New new orders recieved.
--- NOTE | 2020-12-28 17:30 | NUR ---
Blood transfusion - Provider call Dr. Rueda called in regards to patient refusing blood unless another H&H is checked and if it is lower than 7 she will think about getting transfusion. Educated on importance of blood transfusion and transfusion reactions reviwed with patient. After review of possible transfusion reactions pt states "I just want to be sure I really need the blood." H&H ordered for 2200 with A. Partial Thromboplastine per provider.
--- NOTE | 2020-12-28 18:12 | NUR ---
Shift Summary Heparin 22 U/KG/HR, infusing via right hand. On 1 L via NC, SPO2 > 96%. HR 90'S. BP stable. Pt A/O X 4. States having pain on right upper shoulder/chest, treated per emar. Has SOB occasionally with activity such as being on bedpain. Right femoral groin site nontender, dressing C/D/I, and no hematoma. Extensive education given by all providers and I in regards to mediciation compliance after discharge and importance of blood transfusion. Pt states understanding and would like to wait until recheck of H&H before recieving blood transfusion. Will report to nightsflft.
--- NOTE | 2020-12-28 20:12 | NUR ---
PATIENT REPORT RECEIVED FROM CAESAR JARRELL NOTED IN THE MONITOR NC [address] [facility]
[2020-12-28 21:56] LABS: Hematocrit 19.1 % (33.0-51.0)
[2020-12-28 21:57] LABS: Hemoglobin 5.7 g/dL (11.5-16.0)
--- NOTE | 2020-12-28 22:36 | NUR ---
PATIENT HEMOGLOBINE 5.6 PATIENT REFUSE THE BLOOD TRANFUSION CHARGE NURSE MADE AWARE
--- NOTE | 2020-12-28 23:35 | NUR ---
CALL TO DR RACHEL: MADE DR RACHEL AWARE THAT HEPARIN HAD NOT BEEN RUNNING AT THERAPUTIC RATE AND THAT PHARMACY HAD BEEN NOTIFIED, CONFIRMED THAT HE WANTED PT TO RECEIVE HEPARIN BOLUS. ALSO, INFORMED HIM THAT PT HAD CONTINUED TO REFUSE BLOOD TRANSFUSION AT SHIFT CHANGE, BUT THAT WITH CONTINUED DISCUSSION WITH NURSING STAFF, PT WAS NOW AGREEABLE AND THAT UNIT WAS BEING TRANSFUSED. CONFIRMED TRANSFUSION PARAMETER TO KEEP HGB >7. DISCUSSED W PRIMARY RN. SEE ORDERS.
--- NOTE | 2020-12-29 08:31 | NUR ---
ASSUMED PT CARE THIS AM. PT A/OX4, CALM AND COOPERATIVE WITH CARE. PT HAS RECEIVED 2 UNITS PRBC ON NOC SHIFT. PHLEBOTOMY CALLED RE: PENDING LAB WORK, STATES THEY WILL BE BY [facility]. PHARMACY UPDATED RE: PEND LABS. PT GIVEN FENT FOR C/O 6/10 PAIN TO RIGHT SHOULDER/ARM. VSS, DENIES CP, NUMBNESS/TINGLING, N/V, AND REPORTS DYSPNEA HAS IMPROVED SINCE YESTERDAY. MD CRISOSTOMO IN TO EVAL PT. LUNGS WITH CRACKLES, DISCUSSED IMPORTANCE OF DEEP BREATHING TOLERATED. HEP GTT INFUSING AT 22UNITS, LAB PRESENT TO DRAW AT 0840. RIGHT GROIN SITE SOFT AND INTACT. VOIDING ON BED ODELL WITHOUT ISSUE. CALL LIGHT IN REACH.
[2020-12-29 08:53] LABS: Hematocrit 25.1 % (33.0-51.0); Hemoglobin 7.8 g/dL (11.5-16.0)
[2020-12-29 09:08] LABS: Anion Gap 5 mmol/L (6-16); Blood Urea Nitrogen 5 mg/dL (8-24); Bun/Creatinine Ratio 10.5 (12.0-20.0); CO2, Blood 25 mmol/L (21-32); Calcium, Blood 7.8 mg/dL (8.5-10.1); Chloride, Blood 108 mmol/L (98-108); Creatinine, Blood 0.48 mg/dL (0.40-1.00); Glomerular Filtration Rate >60 (60-); Glucose, Blood 97 mg/dL (70-99); Potassium, Blood 3.8 mmol/L (3.5-5.5); Sodium, Blood 138 mmol/L (136-145)
--- NOTE | 2020-12-29 18:14 | NUR ---
SHIFT SUMMARY PT A/OX4. FENT PRN GIVEN X3, OXYCODONE 5MG GIVEN X2 FOR PAIN TO RIGHT SHOULDER AND RIGHT ARM. PAIN MEDICATION REGIMEN EFFECTIVE IN TREATING DISCOMFORT, PT STATES PAIN IS REDUCED COMPARED TO YESTERDAY. PT UP TO BSC X 2 WITH SBA. TOLERATING INCREASED ACTIVITY WELL TODAY. H/H STABLE AFTER 2 UNITS PRBC DURING NOC SHIFT. H/H 10/06. HEPARIN INCREASED TO 24 UNITS/KG/HR ON THIS SHIFT. HR AND BP STABLE. PT ON 1 L NC. REPORTS JOSEPH, OTHERWISE RESP STATUS IMPROVING. PT EATING MOST OF MEALS, VOIDING WITHOUT ISSUE. DOWNGRADED TO MEDICAL STATUS.
[2020-12-29 23:07] LABS: Hematocrit 23.9 % (33.0-51.0); Hemoglobin 7.6 g/dL (11.5-16.0)
[2020-12-30 05:33] LABS: BASOPHILS ABSOLUTE AUTO 0.15 K/mm3 (0.00-0.23); BASOPHILS PERCENT AUTO 1 % (0-2); EOSINOPHILS ABSOLUTE AUTO 0.25 K/mm3 (0.00-0.68); EOSINOPHILS PERCENT AUTO 1 % (0-6); Hematocrit 25.8 % (33.0-51.0); Hemoglobin 7.9 g/dL (11.5-16.0); IMMATURE GRAN ABSOLUTE AUTO 1.76 K/mm3 (0.00-0.10); IMMATURE GRAN PERCENT AUTO 9 % (0-1); LYMPHOCYTES ABSOLUTE AUTO 3.85 K/mm3 (0.84-5.20); LYMPHOCYTES PERCENT AUTO 19 % (21-46); MONOCYTES ABSOLUTE AUTO 1.62 K/mm3 (0.16-1.47); MONOCYTES PERCENT AUTO 8 % (4-13); Mean Corpuscular HGB 22.3 pg (26.0-34.0); Mean Corpuscular HGB Conc 30.6 g/dL (31.5-36.5); Mean Corpuscular Volume 73 fL (80-100); NEUTROPHILS ABSOLUTE AUTO 12.61 K/mm3 (1.96-9.15); NEUTROPHILS PERCENT AUTO 62 % (41-73); NRBC ABSOLUTE 0.16 K/mm3 (0.00-0.02); NRBC Auto 0.8 /100 WBC (0.0-0.2); Platelet Count 657 K/mm3 (150-400); RDW Coefficient Variation 22.9 % (11.7-14.2); RDW Standard Deviation 58.4 fL (35.1-46.3); Red Blood Cell Count 3.54 M/mm3 (3.80-5.20); White Blood Cell Count 20.24 K/mm3 (4.00-11.30)
[2020-12-30 06:03] LABS: Anion Gap 5 mmol/L (6-16); Blood Urea Nitrogen 6 mg/dL (8-24); Bun/Creatinine Ratio 13.7 (12.0-20.0); CO2, Blood 26 mmol/L (21-32); Calcium, Blood 8.2 mg/dL (8.5-10.1); Chloride, Blood 107 mmol/L (98-108); Creatinine, Blood 0.44 mg/dL (0.40-1.00); Glomerular Filtration Rate >60 (60-); Glucose, Blood 98 mg/dL (70-99); Potassium, Blood 3.9 mmol/L (3.5-5.5); Sodium, Blood 138 mmol/L (136-145)
--- NOTE | 2020-12-30 08:42 | NUR ---
ASSUMED PT CARE. PT A/OX4. REPORTS FEELING SOME IMPROVEMENT IN PAIN AND DYSPNEA COMPARED TO YESTERDAY. HEPARIN GTT OFF, GIVEN ELIQUIS 10MG PO. H/H STABLE THIS AM. PT GIVEN FENT IV FOR C/O PAIN. PLAN TO ASSIST TO CHAIR AND ASSIST WITH BATHING. MED TELE STATUS. DISCUSSED INCREASING WBC WITH MD CRISOSTOMO. REINFORCED TEACHING WITH PT RE: ELIQUIS AND IMPORTANCE OF TAKING FOR PREVENTING FURTHER BLOOD CLOTS AND TREATING CURRENT PE/DVT.
--- NOTE | 2020-12-30 08:52 | NUR ---
MD CRISOSTOMO INFORMED PT AND RN THAT PT WILL LIKELY DC HOME TODAY WITH HOME HEALTH IF TOLERATING ELIQUIS. DISCUSSED WITH THAT PT HAS BEEN REQUIRING FETN 50MCG Q 4 AND OXY 5MG Q 6. HOME O2 EVAL ORDERED.
--- NOTE | 2020-12-30 15:35 | NUR ---
PHYSICAL THERAPY IN TO WORK WITH PT, PT PREMEDICATED WITH OXYCODONE 5MG. PER PHYSICAL THERAPY, RECOMMENDATION IS FOR PT TO DC TO SNF FOR ONGOING REHAB. MD CRISOSTOMO NOTIFIED. CONFIRMED WITH THAT PLAN IS FOR PT TO DC TO SNF, LIKELY AFTER THIS WEEKEND.
--- NOTE | 2020-12-30 17:41 | NUR ---
PT ARRIVED TO ROOM 339 FROM ICU 1 VIA BED. ONE PERSON ASSIST TO BED AND BSC. ORIENTED TO ROOM AND CALL SYSTEM, PT DENIES PAIN/DISCOMFORT AT THIS TIME. ASSISTED UP TO BSC AND BACK INTO BED. SHE IS A/O X 4. BED IN LOWEST POSITION AND CALL LIGHT IN REACH. WILL CONTINUE TO MONITOR AND REPORT TO ONCOMING RN.
--- NOTE | 2020-12-30 17:47 | NUR ---
SHIFT SUMMARY PT TAKEN TO BED 339 AT 1730. PT A/OX4, PAIN TREATED WITH OXY 5 MG Q 6, IV FENT DC TO PREP FOR DISCHARGE. PT NOW ON RA, SATS 94%. HOME O2 EVAL VIA RT, PT EVAL. RECOMMENDATION FOR SNF FOR REHAB. PT UP TO CHAIR FOR 2 HOURS TODAY, AMBULATED WITH RT IN HALLWAYS. H/H STABLE.
--- NOTE | 2020-12-31 03:17 | NUR ---
MAINFRAME ANALYST SUMMARY PATIENT HAD A FAIR SHIFT. HER V/S CHECKED AND DOCUMENTED. PATIENT STATED THAT HER PAIN IS NOT BEING ADDRESSED BY THE 5MG OF OXYCODONE, I INFORMED THE HOSPITALIST WHO INCREASED THE DOSE TO 10MG Q6H NEEDED. SAME WAS ADMINISTERED. SEE EMAR. WILL CONTINUE TO MONITOR HER.
[2020-12-31 05:16] LABS: Hematocrit 28.5 % (33.0-51.0); Hemoglobin 8.7 g/dL (11.5-16.0)
--- NOTE | 2020-12-31 18:30 | NUR ---
SHIFT SUMMARY PATIENT IS RESTING IN BED. PATIENT IS A&O X4. PLEASANT AND COOPERATIVE. PATIENT IS REQUESTING PAIN MEDICATION EVERY 6 HOURS. MEDICATING PER MAR. WORKED WITH PHYSICAL THERAPY TODAY. PATIENT IS ONLY USING BEDPAN STATING TOO WEAK TO GET OUT OF BED. AWAITING DISHARGE TO SNF UNIT. VITAL SIGNS STABLE. WILL CONTINUE TO MONITOR
--- NOTE | 2021-01-01 02:56 | NUR ---
DIORAMA MODEL MAKER SUMMARY PATIENT HAD A FAIR SHIFT.HAD HER PAIN MED NEEDED. HER VITALS ARE STABLE. SHE IS USING BEDPAN, NOT TOLERATING ACTIVITIES WELL. WILL CONTINUE TO MONITOR HER.
[2021-01-01 05:34] LABS: Hematocrit 31.1 % (33.0-51.0); Hemoglobin 9.5 g/dL (11.5-16.0); Mean Corpuscular HGB 22.6 pg (26.0-34.0); Mean Corpuscular HGB Conc 30.5 g/dL (31.5-36.5); Mean Corpuscular Volume 74 fL (80-100); Mean Platelet Volume 10.5 fL (9.1-12.4); NRBC Auto 0.7 /100 WBC (0.0-0.2); Platelet Count 857 K/mm3 (150-400); RDW Standard Deviation 62.6 fL (35.1-46.3); Red Blood Cell Count 4.21 M/mm3 (3.80-5.20); White Blood Cell Count 15.08 K/mm3 (4.00-11.30)
[2021-01-01 06:45] LABS: BAND PERCENT MAN 3 % (0-8); BASOPHILS PERCENT MAN 0 % (0-2); EOSINOPHILS PERCENT MAN 0 % (0-6); LYMPHOCYTES ABSOLUTE MAN 3.01 K/mm3 (0.84-5.20); LYMPHOCYTES PERCENT MAN 20 % (21-46); METAMYELOCYTE ABSOLUTE MAN 0.45 K/mm3 (0.00-0.00); METAMYELOCYTE PERCENT MAN 3 % (0-0); MONOCYTES PERCENT MAN 6 % (4-13); MYELOCYTE ABSOLUTE MAN 0.45 K/mm3 (0.00-0.00); MYELOCYTE PERCENT MAN 3 % (0-0); NEUTROPHILS ABSOLUTE MAN 10.25 K/mm3 (1.96-9.15); SEG NEUTROPHILS PERCENT MAN 65 % (41-73); TOTAL CELLS COUNTED 100
--- NOTE | 2021-01-01 18:39 | NUR ---
SHIFT SUMMARY PATIENT PLEASANT AND COOPERATIVE THROUGHOUT SHIFT. HAD PAIN MEDS NEEDED PER MAR. PATIENT IS WEAK AND QUICKLY BECOMES TIRED AND SOB UPON ACTIVITY. PATIENT IS WORKING ON DOING EXERCISES INSTRUCTED BY PHYSICAL THERAPY. VITAL SIGNS STABLE. WILL CONTINUE TO MONITOR.
--- NOTE | 2021-01-02 04:59 | NUR ---
SUMMARY PT CONTINUES TO C/O DISCCOMFORT IN LUNGS AND LEGS. PT TX PER EMAR W/ RELIEF. PT HAD NO OTHER COMPLAINTS, DENIES SOB. CALL LIGHT IN REACH.
--- NOTE | 2021-01-02 17:05 | NUR ---
SHIFT SUMMARY PATIENT ALERT AND ORIENTED THIS SHIFT. PATIENT UP TO CHAIR WITH PT THIS SHIFT, BACK TO BED FOR THE REMAINDER OF SHIFT. PATIENT HAVING INCREASED PAIN IN THE LEFT CHEST THIS SHIFT. DOCTORS CONTACTED FREQUENTLY TO ATTEMPT TO RESOLVE PAIN. PATIENT MEDICATED PER EMAR AND ORDERS. PATIENT CURRENTLY SITTING UP IN BED WITH DECREASED PAIN.
--- NOTE | 2021-01-03 04:13 | NUR ---
PT SLEPT FOR MOST OF THE NIGHT, C/O PAIN AND TREATED PER EMAR. PT WAS CONCERNED OVER BREAKTHROUGH PAIN MANAGEMENT SHE HAS ALLERGIES TO MULT MEDICATIONS. SO FAR 10 MG PO ROXYCODONE Q6 HAS WORKED. MILD EDEMA NOTED TO BLE. LUNGS CLEAR, DIM IN BASES WITH SHALLOW GUARDED BREATHS. PT CONT TO USE BEDPAN AND DOESNOT WANT TO GET UP FOR CAMODE. NO OTHER CHANGES OVER NIGHT. WILL CONT TO MONITOR.
[2021-01-03 05:32] LABS: Hematocrit 29.9 % (33.0-51.0); Mean Corpuscular HGB 22.3 pg (26.0-34.0); Mean Corpuscular HGB Conc 30.1 g/dL (31.5-36.5); Mean Corpuscular Volume 74 fL (80-100); NRBC ABSOLUTE 0.02 K/mm3 (0.00-0.02); NRBC Auto 0.1 /100 WBC (0.0-0.2); Platelet Count 866 K/mm3 (150-400); RDW Coefficient Variation 24.7 % (11.7-14.2); RDW Standard Deviation 63.6 fL (35.1-46.3); Red Blood Cell Count 4.04 M/mm3 (3.80-5.20); White Blood Cell Count 14.77 K/mm3 (4.00-11.30)
[2021-01-03 06:13] LABS: BAND PERCENT MAN 1 % (0-8); BASOPHILS PERCENT MAN 0 % (0-2); EOSINOPHILS ABSOLUTE MAN 0.14 K/mm3 (0.00-0.68); EOSINOPHILS PERCENT MAN 1 % (0-6); LYMPHOCYTES % ATYPICAL MANUAL 6 % (0-0); LYMPHOCYTES PERCENT MAN 15 % (21-46); MONOCYTES ABSOLUTE MAN 1.32 K/mm3 (0.16-1.47); MONOCYTES PERCENT MAN 9 % (4-13); NEUTROPHILS ABSOLUTE MAN 10.19 K/mm3 (1.96-9.15); SEG NEUTROPHILS PERCENT MAN 68 % (41-73); TOTAL CELLS COUNTED 100
--- NOTE | 2021-01-03 08:00 | NUR ---
pt laying in bed awake a/ox3, pleasant and cooperative with care, follows commands, denies pain, lungs are clear in upper burr, dim in bases, resp even and unlabored, no cough noted, hrr, no edema noted, ppp+2, cap refill <3sec, vs stable, afebrile, iv site is clear and patent, btx4, abd flat soft nontender, voids without diff, has been using a bedpan, skin c/w/d, marcellus gilliam, call light in reach.
--- NOTE | 2021-01-03 14:46 | NUR ---
pt called for assistance to void, asked her how she stands to get to bsc, she states she doesn't want to get up today, wants a bedpan. encouraged her to not stay in bed but she feels her pain is just starting to get under control and wants to wait until tomorrow to get oob. call light in reach.
--- NOTE | 2021-01-03 18:12 | NUR ---
pt was concerned about a low grade temp, went to give her some tylenol, she was resistant, but did take it. went over some of her labs with her and answered her questions. call light in reach.
[2021-01-04 05:35] LABS: BASOPHILS PERCENT AUTO 1 % (0-2); EOSINOPHILS ABSOLUTE AUTO 0.12 K/mm3 (0.00-0.68); EOSINOPHILS PERCENT AUTO 1 % (0-6); Hematocrit 31.2 % (33.0-51.0); Hemoglobin 9.2 g/dL (11.5-16.0); IMMATURE GRAN ABSOLUTE AUTO 0.42 K/mm3 (0.00-0.10); IMMATURE GRAN PERCENT AUTO 3 % (0-1); LYMPHOCYTES ABSOLUTE AUTO 2.53 K/mm3 (0.84-5.20); LYMPHOCYTES PERCENT AUTO 20 % (21-46); MONOCYTES ABSOLUTE AUTO 1.38 K/mm3 (0.16-1.47); MONOCYTES PERCENT AUTO 11 % (4-13); Mean Corpuscular HGB 22.2 pg (26.0-34.0); Mean Corpuscular HGB Conc 29.5 g/dL (31.5-36.5); Mean Corpuscular Volume 75 fL (80-100); Mean Platelet Volume 10.3 fL (9.1-12.4); NEUTROPHILS ABSOLUTE AUTO 8.22 K/mm3 (1.96-9.15); NEUTROPHILS PERCENT AUTO 64 % (41-73); Platelet Count 909 K/mm3 (150-400); RDW Coefficient Variation 24.8 % (11.7-14.2); RDW Standard Deviation 65.8 fL (35.1-46.3); Red Blood Cell Count 4.15 M/mm3 (3.80-5.20); White Blood Cell Count 12.77 K/mm3 (4.00-11.30)
--- NOTE | 2021-01-04 06:10 | NUR ---
PT SLEPT WELL THROUGH NIGHT. MEDICATED PER EMAR Q6 REQUETED FOR SHOULDER/LUNG PAIN. PT CONT TO USE BEDPAN AND REFUSES TO GET UP TO USE CAMODE. PT STATES SHE IS SCARED TO DO SO BUT WILL WORK WITH PT TODAY. PT STATES SHE HAS BEEN USING SHOWER CAPS TO CLEAN HER ROSMERY AREA AND NOW SHE FEELS LIKE SHE IS BURNING. PT EDUCATED ON USING WARM WATER AND MILD SOAP TO PREVENT BLADDER OR YEAST INFECTIONS. PT REMAINS ALERT AND ORIENTED. STAFF WILL CONTINUE TO MONITOR.
--- NOTE | 2021-01-04 16:08 | NUR ---
SHIFT SUMMARY PT IS AOX4. PT DENIES N/V, SOB. PT MEDICATED X2 FOR PAIN. PT WORKED WITH PT AND IS ONE ASSIST FOR TRANSFERS. PT UP TO CHAIR AND COMMODE THIS SHIFT. PT RECEIVED SUCCESSFUL ENEMA AND BM PRODUCED. PLAN IS FOR LIKELY PLACEMENT. PT DID NOT HAVE VISITORS THIS SHIFT. PT IS IN BED, CALL LIGHT IN REACH, LOW POSITION.
[2021-01-04 19:58] LABS: Source, Urine Clean Catch
[2021-01-04 20:01] LABS: Appearance, Urine Clear (Clear); Bilirubin, Urine Neg (Neg); Blood, Urine 2+ (Neg); Color, Urine Yellow (P-Yellow); Glucose Qualitative, Urine Neg (Neg); Ketones, Urine Neg (Neg); Leukocyte Esterase, Urine Neg (Neg); Nitrite, Urine Neg (Neg); Protein, Urine Neg (Neg); Urobilinogen, Urine 1+ (Normal)
[2021-01-04 20:16] LABS: Bacteria Rare /hpf; Red Blood Cells, Urine 0-2 /hpf (0-2); Squamous Epithelial Cells Few /hpf (Few); White Blood Cells, Urine 0-2 /hpf (0-5)
[2021-01-05 05:59] LABS: BASOPHILS PERCENT AUTO 1 % (0-2); EOSINOPHILS ABSOLUTE AUTO 0.14 K/mm3 (0.00-0.68); EOSINOPHILS PERCENT AUTO 1 % (0-6); Hematocrit 29.2 % (33.0-51.0); Hemoglobin 8.7 g/dL (11.5-16.0); IMMATURE GRAN ABSOLUTE AUTO 0.24 K/mm3 (0.00-0.10); IMMATURE GRAN PERCENT AUTO 2 % (0-1); LYMPHOCYTES ABSOLUTE AUTO 2.32 K/mm3 (0.84-5.20); LYMPHOCYTES PERCENT AUTO 24 % (21-46); MONOCYTES ABSOLUTE AUTO 1.13 K/mm3 (0.16-1.47); MONOCYTES PERCENT AUTO 12 % (4-13); Mean Corpuscular HGB 22.2 pg (26.0-34.0); Mean Corpuscular HGB Conc 29.8 g/dL (31.5-36.5); Mean Corpuscular Volume 75 fL (80-100); Mean Platelet Volume 10.1 fL (9.1-12.4); NEUTROPHILS ABSOLUTE AUTO 5.87 K/mm3 (1.96-9.15); NEUTROPHILS PERCENT AUTO 60 % (41-73); Platelet Count 877 K/mm3 (150-400); RDW Coefficient Variation 25.1 % (11.7-14.2); RDW Standard Deviation 65.1 fL (35.1-46.3); Red Blood Cell Count 3.92 M/mm3 (3.80-5.20)
--- NOTE | 2021-01-05 06:50 | NUR ---
PT WITH NO NEW COMPLAINTS DURING SHIFT. MEDICATED WITH PRN ROXYCODONE ORDERED X 2 OCCURRENCES-WITH DESIRED EFFECT. UA WAS NEGATIVE. BED IS IN LOW POSTION WITH CALL LIGHT IN REACH.
--- NOTE | 2021-01-05 17:58 | NUR ---
PT ALERT AND ORIENTED, STILL REQUIRES 1 ASSIST UP TO BSC, REQUESTS FEMALE CAREGIVER ASSISTANCE ONLY TO BSC. MEDICATED FOR PAIN WITH ROXICODONE X2 TODAY, SHE DID WORK WITH PT/OT AND SHE FEELS SHE IS SLOWLY IMPROVING AND GETTING STRONGER. NO ACUTE CHANGES NOTED THIS SHIFT, WILL CONTINUE TO MONITOR AND REPORT TO ONCOMING RN,.
--- NOTE | 2021-01-06 04:33 | NUR ---
SHIFT SUMMARY AOX4. VSS. REPORTS 6/10 SHARP PAIN IN LUNGS, MEDICATED 2X c 10MG ROXICODONE & STATES RELIEF. PAIN LEVEL 2/10 WHEN REASSESSED. DENIES N/V. REPORTS MILD SOB. LS DIM, E/U RESP, SPO2 >90% ON RA. UP 1 ASSIST TO BSC. AWAITING DC PLAN. CALL LIGHT IN REACH. WCTM UNTIL DAY NURSE ASSUMES CARE.
[2021-01-06 05:32] LABS: BASOPHILS ABSOLUTE AUTO 0.09 K/mm3 (0.00-0.23); BASOPHILS PERCENT AUTO 1 % (0-2); EOSINOPHILS ABSOLUTE AUTO 0.23 K/mm3 (0.00-0.68); EOSINOPHILS PERCENT AUTO 3 % (0-6); Hematocrit 29.1 % (33.0-51.0); Hemoglobin 8.6 g/dL (11.5-16.0); IMMATURE GRAN ABSOLUTE AUTO 0.17 K/mm3 (0.00-0.10); IMMATURE GRAN PERCENT AUTO 2 % (0-1); LYMPHOCYTES ABSOLUTE AUTO 2.75 K/mm3 (0.84-5.20); LYMPHOCYTES PERCENT AUTO 30 % (21-46); MONOCYTES ABSOLUTE AUTO 1.19 K/mm3 (0.16-1.47); MONOCYTES PERCENT AUTO 13 % (4-13); Mean Corpuscular HGB 22.5 pg (26.0-34.0); Mean Corpuscular HGB Conc 29.6 g/dL (31.5-36.5); Mean Corpuscular Volume 76 fL (80-100); Mean Platelet Volume 10.4 fL (9.1-12.4); NEUTROPHILS ABSOLUTE AUTO 4.88 K/mm3 (1.96-9.15); NEUTROPHILS PERCENT AUTO 52 % (41-73); Platelet Count 838 K/mm3 (150-400); RDW Standard Deviation 67.1 fL (35.1-46.3); Red Blood Cell Count 3.83 M/mm3 (3.80-5.20); White Blood Cell Count 9.31 K/mm3 (4.00-11.30)
[2021-01-06 05:55] LABS: Alanine Aminotransfer (ALT/SGP 15 U/L (12-78); Albumin, Blood 2.3 g/dL (3.4-5.0); Albumin/Globulin Ratio 0.5 (0.8-1.8); Alk Phos 106 U/L (50-136); Anion Gap 8 mmol/L (6-16); Aspartate Aminotrans (AST/SGOT 16 U/L (12-37); Bilirubin, Total 0.3 mg/dL (0.1-1.0); Blood Urea Nitrogen 9 mg/dL (8-24); Bun/Creatinine Ratio 18.9 (12.0-20.0); CO2, Blood 24 mmol/L (21-32); Calcium, Blood 8.9 mg/dL (8.5-10.1); Chloride, Blood 106 mmol/L (98-108); Creatinine, Blood 0.48 mg/dL (0.40-1.00); Globulin, Blood 4.2 g/dL (2.2-4.0); Glomerular Filtration Rate >60 (60-); Glucose, Blood 99 mg/dL (70-99); Potassium, Blood 4.4 mmol/L (3.5-5.5); Sodium, Blood 138 mmol/L (136-145); Total Protein, Blood 6.5 g/dL (6.4-8.2)
--- NOTE | 2021-01-06 17:35 | NUR ---
SHIFT [employer] PATIENT IS ALERT AND ORIENTED, PLEASANT AND COOPERATIVE WITH CARE. PATIENT WORKED WITH PHYSICAL THERAPY THIS SHIFT. PATIENT WAS ABLE TO WALK TO THE BATHROOM WITHOUT DIFFICULTY. THE PATIENT IS CONCERNED ABOUT THEIR PAIN MEDICATION REGIMEN AND WOULD LIKE IT TO STAY THEY WAY IT HAS BEEN UNTIL DISCHARGE IF POSSIBLE. NO ACUTE CHANGES THIS SHIFT. VSS. WILL CONTINUE TO CARE FOR THE PATIENT UNTIL SHIFT REPORT IS GIVEN TO ONCOMING NURSE.
--- NOTE | 2021-01-07 03:21 | NUR ---
SHIFT SUMMARY PATIENT HAD NO ACUTE CHANGES. AXOX 4 AND SBA TO BSC. REPORTED OXYCODONE 5 MG NOT GIVING ADEQUATE RELIEF AND WAS TAKING 10 MG EARLIER IN DAY AND DAY BEFORE WITH GOOD RELIEF BEFORE DC'D. DR STOCK HOSPITALIST ORDERED 10 MG OXYCODONE X ONE AND PATIENT ABLE TO SLEEP WITH PAIN MANAGEMENT. VSS/AFEBRILE. DENIES SOB AND N/V. REPORTS WILL DISCHARGE TO SNF IN [place] ON SATURDAY WITH ROOM OPENING UP FOR REHAB. CALL LIGHT IN REACH. BED IN LOWEST POSITION. WILL CONTINUE TO MONITOR UNTIL DAY SHIFT NURSE ASSUMES CARE.
[2021-01-07 05:33] LABS: BASOPHILS ABSOLUTE AUTO 0.12 K/mm3 (0.00-0.23); BASOPHILS PERCENT AUTO 1 % (0-2); EOSINOPHILS ABSOLUTE AUTO 0.17 K/mm3 (0.00-0.68); EOSINOPHILS PERCENT AUTO 2 % (0-6); Hematocrit 30.6 % (33.0-51.0); IMMATURE GRAN PERCENT AUTO 1 % (0-1); LYMPHOCYTES ABSOLUTE AUTO 2.58 K/mm3 (0.84-5.20); LYMPHOCYTES PERCENT AUTO 29 % (21-46); MONOCYTES ABSOLUTE AUTO 1.15 K/mm3 (0.16-1.47); MONOCYTES PERCENT AUTO 13 % (4-13); Mean Corpuscular HGB 22.2 pg (26.0-34.0); Mean Corpuscular HGB Conc 29.4 g/dL (31.5-36.5); Mean Corpuscular Volume 75 fL (80-100); Mean Platelet Volume 10.5 fL (9.1-12.4); NEUTROPHILS ABSOLUTE AUTO 4.84 K/mm3 (1.96-9.15); NEUTROPHILS PERCENT AUTO 54 % (41-73); Platelet Count 848 K/mm3 (150-400); RDW Coefficient Variation 24.2 % (11.7-14.2); RDW Standard Deviation 64.1 fL (35.1-46.3); Red Blood Cell Count 4.06 M/mm3 (3.80-5.20); White Blood Cell Count 8.96 K/mm3 (4.00-11.30)
--- NOTE | 2021-01-07 17:54 | NUR ---
SHIFT SUMMARY: NO ACUTE EVENTS. C/O 6-08/20 PAIN IN LUNGS, WORSE WITH ACTIITY; MEDICATED WITH OXYCODONE 5 MG FIRST, THEN GIVEN ADDITIONAL 5 MG 30 MINUTES LATER WITH ADEQUATE RELIEF. DECLINED SCHEDULED TYLENOL. WORKED WITH PHYSICAL THERAPY; GAIT IS WEAK, WAS NOT ABLE TO WALK VERY FAR. WAS TOO TIRED AFTER PT FOR SHOWER, DEFERRED UNTIL TOMORROW. O2 SATS > 92% ON ROOM AIR.
--- NOTE | 2021-01-08 03:27 | NUR ---
SHIFT SUMMARY PATIENT HAD NO ACUTE CHANGES OBSERVED. AXOX 4 WITH FLAT AFFECT. SBA TO BR. REPORTED LUNG PAIN AND OXYCODONE GIVEN PER EMAR 5 MG AND ADDITIONAL SECOND DOSE OF 5 MG GIVEN THIRTY MINUTES LATER FOR ADEQUATE PAIN RELIEF. REFUSING SCHEDULE TYLENOL. PATIENT PHONE PLACED ON FACILITY INDEPENDENT PRODUCER PER REQUEST. VSS/AFEBRILE. DENIES SOB AND N/V. COOPERATIVE WITH CARE. CALL LIGHT IN REACH. BED IN LOWEST POSITION. WILL CONTINUE TO MONITOR UNTIL DAY SHIFT NURSE ASSUMES CARE.
[2021-01-08 05:15] LABS: BASOPHILS PERCENT AUTO 1 % (0-2); EOSINOPHILS ABSOLUTE AUTO 0.14 K/mm3 (0.00-0.68); EOSINOPHILS PERCENT AUTO 2 % (0-6); Hematocrit 30.4 % (33.0-51.0); IMMATURE GRAN ABSOLUTE AUTO 0.09 K/mm3 (0.00-0.10); IMMATURE GRAN PERCENT AUTO 1 % (0-1); LYMPHOCYTES ABSOLUTE AUTO 2.47 K/mm3 (0.84-5.20); LYMPHOCYTES PERCENT AUTO 28 % (21-46); MONOCYTES ABSOLUTE AUTO 1.06 K/mm3 (0.16-1.47); MONOCYTES PERCENT AUTO 12 % (4-13); Mean Corpuscular HGB 22.4 pg (26.0-34.0); Mean Corpuscular HGB Conc 29.6 g/dL (31.5-36.5); Mean Corpuscular Volume 76 fL (80-100); Mean Platelet Volume 10.4 fL (9.1-12.4); NEUTROPHILS ABSOLUTE AUTO 4.88 K/mm3 (1.96-9.15); NEUTROPHILS PERCENT AUTO 56 % (41-73); Platelet Count 829 K/mm3 (150-400); RDW Coefficient Variation 24.6 % (11.7-14.2); RDW Standard Deviation 65.4 fL (35.1-46.3); Red Blood Cell Count 4.01 M/mm3 (3.80-5.20); White Blood Cell Count 8.74 K/mm3 (4.00-11.30)
--- NOTE | 2021-01-08 18:32 | NUR ---
PT A/O X4, PLEASANT AND COOPERATIVE WITH CARE, ONE ASSIST UP TO BATHROOM. PT REFUSING MIRALAX AND COLACE, ROXICODONE GIVEN X2 FOR FLANK/LUNG PAIN, AND IS REFUSING SCHEDULED TYLENOL. PT IS ANTICIPATING DISCHARGE TO SNF IN [place] TOMORROW. NO ACUTE CHANGES NOTED THIS SHIFT, WILL CONTINUE TO MONITOR AND REPORT TO ONCOMING RN.
--- NOTE | 2021-01-09 03:20 | NUR ---
SHIFT SUMMARY PATIENT HAD NO ACUTE CHANGES. AXOX 4 WITH FLAT AFFECT. SBA TO BR. REPORTED LUNG PAIN AND OXYCODONE 10 MG GIVEN PER EMAR WITH GOOD RELIEF. PATIENT ABLE TO SLEEP. REFUSED SCHEDULE TYLENOL. VSS/AFEBRILE. DENIES SOB AND N/V. COOPERATIVE WITH CARE. CALL LIGHT IN REACH. BED IN LOWEST POSITION. WILL CONTINUE TO MONITOR UNTIL DAY SHIFT NURSE ASSUMES CARE.
[2021-01-09 15:27] LABS: Influenza A, PCR NEGATIVE (NEGATIVE); Influenza B, PCR NEGATIVE (NEGATIVE); Resp Syncytial Virus, PCR NEGATIVE (NEGATIVE); SARS-Cov-2 (COVID-19) PCR, MMC NEGATIVE (NEGATIVE)
[2021-01-09] MEDS ORDERED: ELIQUIS5 M2 PO (15:30)
[2021-01-09] MEDS ORDERED: FERSU300 PO (15:30)
[2021-01-09] MEDS ORDERED: DULCOLAX400 MG/5 M PO (15:31)
[2021-01-09] MEDS ORDERED: SENN187 PO (15:32)
[2021-01-09] MEDS ORDERED: TRAM50 PO (15:33)
[2021-01-09] MEDS ORDERED: Fleet Enema132 ML PR (15:33)
--- NOTE | 2021-01-09 15:39 | NUR ---
REPORT CALLED TO RN AT [facility] AT [id number]
--- NOTE | 2021-01-09 16:18 | NUR ---
PATIENT DISCHARGED AT [address] [facility]IA [facility]
== END 2021-01-09 16:17 | DRG 163 ==
LOC: ER 16:50 → ICUW 19:48 → ICUE 23:32 → MEDS 12-30 17:43
PROVIDERS: Emergency Medicine; Family Medicine; Hospitalist; Internal Medicine; Radiology Diagnostic Radiology; Student in an Organized Health Care Education/Training Program; ADMIT Internal Medicine
PROC: 02CR3ZZ Extirpation of Matter from Left Pulmonary Artery, Percutaneous Approach (ICD-10-PCS; principal; 2020-12-27)
PROC: 02CQ3ZZ Extirpation of Matter from Right Pulmonary Artery, Percutaneous Approach (ICD-10-PCS; 2020-12-27)
DX: I26.92 Saddle embolus of pulmonary artery without acute cor pulmonale (principal); J96.01 Acute respiratory failure with hypoxia; I82.412 Acute embolism and thrombosis of left femoral vein; I82.432 Acute embolism and thrombosis of left popliteal vein; I82.431 Acute embolism and thrombosis of right popliteal vein; D72.829 Elevated white blood cell count, unspecified; Z86.718 Personal history of other venous thrombosis and embolism; D75.838 Other thrombocytosis; Z20.822 Contact with and (suspected) exposure to COVID-19; Z88.1 Allergy status to other antibiotic agents; Z88.2 Allergy status to sulfonamides; Z91.030 Bee allergy status; Z88.0 Allergy status to penicillin; Z91.010 Allergy to peanuts; Z88.5 Allergy status to narcotic agent; Z79.899 Other long term (current) drug therapy; Z88.8 Allergy status to other drugs, medicaments and biological substances; Z90.49 Acquired absence of other specified parts of digestive tract; Z98.51 Tubal ligation status; Z98.890 Other specified postprocedural states; I82.461 Acute embolism and thrombosis of right calf muscular vein; K59.03 Drug induced constipation; T40.2X5A Adverse effect of other opioids, initial encounter; D50.9 Iron deficiency anemia, unspecified
CPT/HCPCS: 0241U; 36014; 36015; 36415; 36430; 37184; 37185; 71260; 75743; 75822; 75825; 76937; 80048; 80053; 81001; 82728; 83540; 83550; 83880; 84484; 85014; 85018; 85025; 85379; 85610; 85730; 86850; 86900; 86901; 86923; 93005; 93010; 93308; 93970; 94760; 94761; 96374; 96375; 96376; 97110; 97116; 97162; 97530; 99285-25; A9270; C1769; C1887; C1894; C1898; J1170; J1644; J2250; J2270; J2370; J2405; J2550; J3010; J7030; J7040; P9016; Q9967

== ENCOUNTER 2021-01-15 01:30 | Emergency (ER) | payer OTHER ==
[~2021-01-15] VITALS: Ht 167.6 cm; Wt 63.5 kg
[~2021-01-15 01:30] MED LIST changes: +Colace100 MG PO; +DULCOLAX400 MG/5 M PO; +ELIQUIS5 M2 PO; +FERSU300 PO; +Fleet Enema132 ML PR; +HYDHCL25 PO; +ONDA4ODT MM; +SENN187 PO; +TRAM50 PO
[2021-01-15 02:17] LABS: BASOPHILS ABSOLUTE AUTO 0.08 K/mm3 (0.00-0.23); BASOPHILS PERCENT AUTO 1 % (0-2); EOSINOPHILS ABSOLUTE AUTO 0.19 K/mm3 (0.00-0.68); EOSINOPHILS PERCENT AUTO 2 % (0-6); Hematocrit 28.9 % (33.0-51.0); Hemoglobin 8.6 g/dL (11.5-16.0); IMMATURE GRAN ABSOLUTE AUTO 0.06 K/mm3 (0.00-0.10); IMMATURE GRAN PERCENT AUTO 1 % (0-1); LYMPHOCYTES ABSOLUTE AUTO 4.27 K/mm3 (0.84-5.20); LYMPHOCYTES PERCENT AUTO 46 % (21-46); MONOCYTES ABSOLUTE AUTO 0.92 K/mm3 (0.16-1.47); MONOCYTES PERCENT AUTO 10 % (4-13); Mean Corpuscular HGB 23.2 pg (26.0-34.0); Mean Corpuscular HGB Conc 29.8 g/dL (31.5-36.5); Mean Corpuscular Volume 78 fL (80-100); Mean Platelet Volume 10.9 fL (9.1-12.4); NEUTROPHILS ABSOLUTE AUTO 3.85 K/mm3 (1.96-9.15); NEUTROPHILS PERCENT AUTO 41 % (41-73); Platelet Count 436 K/mm3 (150-400); RDW Coefficient Variation 24.6 % (11.7-14.2); Red Blood Cell Count 3.71 M/mm3 (3.80-5.20); White Blood Cell Count 9.37 K/mm3 (4.00-11.30)
[2021-01-15 02:37] LABS: Alanine Aminotransfer (ALT/SGP 27 U/L (12-78); Albumin, Blood 2.5 g/dL (3.4-5.0); Albumin/Globulin Ratio 0.7 (0.8-1.8); Alk Phos 86 U/L (50-136); Anion Gap 8 mmol/L (6-16); Aspartate Aminotrans (AST/SGOT 25 U/L (12-37); Bilirubin, Total 0.1 mg/dL (0.1-1.0); Blood Urea Nitrogen 8 mg/dL (8-24); Bun/Creatinine Ratio 16.7 (12.0-20.0); CO2, Blood 24 mmol/L (21-32); Chloride, Blood 109 mmol/L (98-108); Creatinine, Blood 0.48 mg/dL (0.40-1.00); Globulin, Blood 3.6 g/dL (2.2-4.0); Glomerular Filtration Rate >60 (60-); Glucose, Blood 83 mg/dL (70-99); Potassium, Blood 3.7 mmol/L (3.5-5.5); Sodium, Blood 141 mmol/L (136-145); Total Protein, Blood 6.1 g/dL (6.4-8.2); Troponin I <0.015 ng/mL (0.000-0.040)
== END 2021-01-15 07:29 | disposition home or self-care (01) ==
LOC: ER 01:30
PROVIDERS: Student in an Organized Health Care Education/Training Program
DX: R07.89 Other chest pain (principal); Z91.030 Bee allergy status; Z91.018 Allergy to other foods; Z91.010 Allergy to peanuts; Z88.6 Allergy status to analgesic agent; Z88.0 Allergy status to penicillin; Z88.2 Allergy status to sulfonamides; Z88.1 Allergy status to other antibiotic agents; Z88.8 Allergy status to other drugs, medicaments and biological substances; Z79.899 Other long term (current) drug therapy
CPT/HCPCS: 71045; 71260; 80053; 83690; 84484; 85025; 93005; 93010; 96374; 99285-25; A9270; J2405; Q9967

== ENCOUNTER 2021-10-28 18:51 | Emergency (ER) | payer OTHER ==
[~2021-10-28] VITALS: Ht 167.6 cm; Wt 65.8 kg
[~2021-10-28 18:51] MED LIST changes: +METR250 PO
[2021-10-28 20:54] LABS: Influenza A, PCR NEGATIVE (NEGATIVE); Influenza B, PCR NEGATIVE (NEGATIVE); Resp Syncytial Virus, PCR NEGATIVE (NEGATIVE)
[2021-10-28 21:19] LABS: SARS-Cov-2 (COVID-19) PCR, MMC POSITIVE (NEGATIVE)
== END 2021-10-29 00:42 | disposition home or self-care (01) ==
LOC: ER 18:51
PROVIDERS: Student in an Organized Health Care Education/Training Program
DX: U07.1 COVID-19 (principal); Z86.711 Personal history of pulmonary embolism; Z79.899 Other long term (current) drug therapy; Z88.6 Allergy status to analgesic agent; Z88.1 Allergy status to other antibiotic agents; Z91.038 Other insect allergy status; Z88.5 Allergy status to narcotic agent; Z91.010 Allergy to peanuts; Z88.0 Allergy status to penicillin; Z88.2 Allergy status to sulfonamides; Z91.018 Allergy to other foods
CPT/HCPCS: 0241U; 36415; 71260; 84484; 85379; 93005; 93010; Q9967